=== PATIENT | female | born 1935 | race African-American/Black ===

== ENCOUNTER 2017-10-26 17:54 | Emergency (ER) | payer MEDICARE, MEDICAID ==
[~2017-10-26] VITALS: Ht 137.2 cm; Wt 50.0 kg
[~2017-10-26 17:54] MED LIST: ASA PO; CLOP75TA16 PO; ERGO2000 PO; FERROUS SULFATE; FURO80TA87; GLIM2TAB2 PO; INSU100V28 IJ; NEPHRO-VITE; NOVOLIN; OMEP20CA10 PO; PRAV40TA58 PO; REN800 PO; VENTOLIN
[2017-10-26 20:41] VITALS: BP 133/56
== END 2017-10-26 21:00 | disposition home or self-care (01) ==
LOC: ER 17:54
DX: T82.838A Hemorrhage due to vascular prosthetic devices, implants and grafts, initial encounter (principal); I12.0 Hypertensive chronic kidney disease with stage 5 chronic kidney disease or end stage renal disease; N18.6 End stage renal disease; E11.22 Type 2 diabetes mellitus with diabetic chronic kidney disease; Y92.89 Other specified places as the place of occurrence of the external cause; Z99.2 Dependence on renal dialysis; Z98.890 Other specified postprocedural states
CPT/HCPCS: 99283

== ENCOUNTER 2018-03-27 22:58 | Emergency (ER) | payer MEDICARE, MEDICAID ==
[~2018-03-27] VITALS: Ht 106.7 cm; Wt 68.0 kg
[2018-03-28 00:57] LABS: CHLORIDE 98 mEq/L (98-107)
[2018-03-28 00:59] LABS: INR 1.2
[2018-03-28 01:00] LABS: BASOPHILS % 0.5 % (0.0-2.0); EOSINOPHILS % 3.8 % (0.0-5.0); HEMATOCRIT. 30.9 % (36.0-48.0); HEMOGLOBIN. 9.9 g/dL (12.0-16.0); LYMPHOCYTES % 16.3 % (20.0-50.0); MEAN CORPUSCULAR HEMOGLOBIN 30.8 pg (28.0-32.0); MEAN CORPUSCULAR VOLUME 95.7 fL (81.0-99.0); MEAN PLATELET VOLUME 8.4 fl (7.4-10.4); MONOCYTES % 6.8 % (2.0-8.0); NEUTROPHILS % 72.6 % (40.0-76.0); PLATELET 159 x1000/uL (130-400); RED BLOOD CELL COUNT 3.23 mill/uL (4.2-5.4)
[2018-03-28 03:20] VITALS: BP 109/52
== END 2018-03-28 03:16 | disposition home or self-care (01) ==
LOC: ER 22:58
DX: T82.838A Hemorrhage due to vascular prosthetic devices, implants and grafts, initial encounter (principal); D63.1 Anemia in chronic kidney disease; E11.22 Type 2 diabetes mellitus with diabetic chronic kidney disease; I12.0 Hypertensive chronic kidney disease with stage 5 chronic kidney disease or end stage renal disease; N18.6 End stage renal disease; Y84.1 Kidney dialysis as the cause of abnormal reaction of the patient, or of later complication, without mention of misadventure at the time of the procedure; Z99.2 Dependence on renal dialysis; Y92.018 Other place in single-family (private) house as the place of occurrence of the external cause
CPT/HCPCS: 36415; 80053; 85025; 85610; 99284

== ENCOUNTER 2018-08-13 21:54 | Inpatient (IN) | payer MEDICARE, MEDICAID ==
[~2018-08-13] VITALS: Ht 162.6 cm; Wt 62.6 kg
[2018-08-13] MEDS ORDERED: METHYLPREDNISOLONE SOD SUCC 125 MG/2 ML VIAL IV STA (22:36)
[2018-08-13] MEDS ORDERED: ALBUTEROL (0.083%) 2.5MG/3ML NEB HHN STA (22:36)
[2018-08-13] MEDS: IPRATROPIUM BROMIDE (0.02%) 0.5MG/2.5ML NEB HHN STA ×2 (23:05→23:10)
[2018-08-13 23:53] LABS: BASOPHILS % 0.7 % (0.0-2.0); HEMATOCRIT. 37.4 % (36.0-48.0); HEMOGLOBIN. 11.9 g/dL (12.0-16.0); LYMPHOCYTES % 15.1 % (20.0-50.0); MEAN CORPUSCULAR HEMOGLOBIN 30.3 pg (28.0-32.0); MEAN CORPUSCULAR VOLUME 95.6 fL (81.0-99.0); MONOCYTES % 7.9 % (2.0-8.0); NEUTROPHILS % 72.3 % (40.0-76.0); PLATELET 138 x1000/uL (130-400); RED BLOOD CELL COUNT 3.91 mill/uL (4.2-5.4); RED CELL DISTRIBUTION WIDTH 17.2 % (11.6-14.6)
[2018-08-13 23:54] LABS: INR 1.2; PROTHROMBIN TIME 12.4 sec (9.1-11.1)
[2018-08-13 23:57] LABS: CHLORIDE 95 mEq/L (98-107)
[2018-08-14] MEDS ORDERED: DILTIAZEM HCL 5MG/ML 5ML VIAL IV ONE (04:00)
[2018-08-14] MEDS ORDERED: DIGOXIN 500MCG/2ML AMP IV SCH (11:16)
[2018-08-14] MEDS ORDERED: KCL 20MEQ/100ML PREMIX 100 ML IV NR (11:30)
[2018-08-14] MEDS ORDERED: AMIODARONE HCL 150 MG in DEXT 5% WATER 100 ML IV NR (12:25)
[2018-08-14] MEDS ORDERED: AMIODARONE HCL 900 MG in DEXT 5% WATER 482 ML IV SCH (12:26)
[2018-08-14] MEDS: AMIODARONE HCL 900 MG in DEXT 5% WATER 482 ML IV SCH (13:44)
[2018-08-14] MEDS ORDERED: CLONIDINE 0.1MG TABLET PO PRN (15:15)
[2018-08-14] MEDS ORDERED: ONDANSETRON HCL 4MG/2ML INJ IV PRN (15:15)
[2018-08-14] MEDS ORDERED: LORAZEPAM 2MG/ML CPJ IV PRN (15:15)
[2018-08-14] MEDS ORDERED: IPRATROPIUM/ALBUTEROL 0.5-3(2.5)MG/3ML NEB INH PRN (15:15)
[2018-08-14] MEDS ORDERED: DOCUSATE SODIUM 100MG CAPSULE PO PRN (15:15)
[2018-08-14 15:33] VITALS: BP 135/61
[2018-08-14 16:00] VITALS: BP 122/74
[2018-08-14 18:00] VITALS: BP 152/58
[2018-08-14] MEDS ORDERED: DEXTROSE 50% WATER 50ML SYRINGE IV PRN (18:15)
[2018-08-14] MEDS: INSULIN LISPRO 100 UNITS/ML SUBCUT SCH ×2 (19:12→22:58)
[2018-08-14 20:00] VITALS: BP 114/76
[2018-08-14] MEDS ORDERED: ENOXAPARIN 30MG/0.3ML SYR SUBCUT SCH (20:00)
[2018-08-14] MEDS: BLOOD SUGAR DIAGNOSTIC STRIP TEST SCH (21:00)
[2018-08-14 22:00] VITALS: BP 122/62
[2018-08-14] MEDS: SODIUM CHLORIDE 0.9% INJ 3ML FLUSH IVF SCH (22:49)
[2018-08-15] VITALS (12 sets, daily range): BP systolic 121–152; BP diastolic 55–95
[2018-08-15] MEDS: ACETAMINOPHEN 325MG TABLET PO PRN (05:07)
[2018-08-15] MEDS: BLOOD SUGAR DIAGNOSTIC STRIP TEST SCH ×4 (06:26→21:30)
[2018-08-15] MEDS: SODIUM CHLORIDE 0.9% INJ 3ML FLUSH IVF SCH ×3 (06:26→22:05)
[2018-08-15] MEDS: INSULIN LISPRO 100 UNITS/ML SUBCUT SCH ×4 (07:20→21:00)
[2018-08-15] MEDS: AMIODARONE HCL 900 MG in DEXT 5% WATER 482 ML IV SCH (08:03)
[2018-08-15] MEDS: FOLIC ACID/VITAMIN B COMP W-C TABLET PO SCH (08:03)
[2018-08-15] MEDS: SEVELAMER CARBONATE 800 MG TABLET PO SCH ×3 (08:03→17:47)
[2018-08-15 08:29] LABS: BASOPHILS % 0.8 % (0.0-2.0); EOSINOPHILS % 0.5 % (0.0-5.0); HEMATOCRIT. 40.5 % (36.0-48.0); HEMOGLOBIN. 12.5 g/dL (12.0-16.0); LYMPHOCYTES % 11.9 % (20.0-50.0); MEAN CORPUSCULAR HEMOGLOBIN 29.9 pg (28.0-32.0); MEAN CORPUSCULAR VOLUME 97.2 fL (81.0-99.0); MEAN PLATELET VOLUME 8.9 fl (7.4-10.4); MONOCYTES % 8.4 % (2.0-8.0); NEUTROPHILS % 78.4 % (40.0-76.0); PLATELET 161 x1000/uL (130-400); RED BLOOD CELL COUNT 4.17 mill/uL (4.2-5.4); RED CELL DISTRIBUTION WIDTH 17.1 % (11.6-14.6)
[2018-08-15] MEDS ORDERED: AMIODARONE HCL 900 MG in DEXT 5% WATER 482 ML IV SCH (10:43)
[2018-08-15] MEDS ORDERED: ASPIRIN 81MG EC TABLET PO NR (12:00)
[2018-08-15] MEDS ORDERED: AMIODARONE HCL 200 MG TABLET PO SCH (12:00)
[2018-08-15] MEDS: APIXABAN 2.5 MG TABLET PO SCH (17:47)
[2018-08-15] MEDS: ATORVASTATIN CALCIUM 40MG TABLET PO SCH (21:26)
[2018-08-15] MEDS: CARVEDILOL 6.25 MG TABLET PO SCH (21:28)
[2018-08-16] VITALS (15 sets, daily range): BP systolic 104–145; BP diastolic 30–108
[2018-08-16] MEDS: ACETAMINOPHEN 325MG TABLET PO PRN (03:30)
[2018-08-16] MEDS: BLOOD SUGAR DIAGNOSTIC STRIP TEST SCH ×4 (06:45→21:21)
[2018-08-16] MEDS: SODIUM CHLORIDE 0.9% INJ 3ML FLUSH IVF SCH ×2 (06:45→14:00)
[2018-08-16] MEDS: INSULIN LISPRO 100 UNITS/ML SUBCUT SCH ×4 (07:20→21:00)
[2018-08-16 07:22] LABS: BASOPHILS % 0.8 % (0.0-2.0); EOSINOPHILS % 2.4 % (0.0-5.0); HEMATOCRIT. 40.1 % (36.0-48.0); HEMOGLOBIN. 12.4 g/dL (12.0-16.0); LYMPHOCYTES % 15.2 % (20.0-50.0); MEAN CORPUSCULAR HEMOGLOBIN 30.1 pg (28.0-32.0); MEAN CORPUSCULAR VOLUME 97.1 fL (81.0-99.0); MEAN PLATELET VOLUME 8.8 fl (7.4-10.4); MONOCYTES % 6.2 % (2.0-8.0); NEUTROPHILS % 75.4 % (40.0-76.0); PLATELET 169 x1000/uL (130-400); RED BLOOD CELL COUNT 4.13 mill/uL (4.2-5.4); RED CELL DISTRIBUTION WIDTH 17.7 % (11.6-14.6)
[2018-08-16] MEDS: FOLIC ACID/VITAMIN B COMP W-C TABLET PO SCH (07:54)
[2018-08-16] MEDS: ASPIRIN 81MG EC TABLET PO SCH (07:55)
[2018-08-16] MEDS: AMIODARONE HCL 200 MG TABLET PO SCH (07:55)
[2018-08-16] MEDS: APIXABAN 2.5 MG TABLET PO SCH ×2 (07:55→17:40)
[2018-08-16] MEDS: SEVELAMER CARBONATE 800 MG TABLET PO SCH ×3 (07:55→17:40)
[2018-08-16] MEDS: CARVEDILOL 6.25 MG TABLET PO SCH ×2 (07:56→23:33)
[2018-08-16] MEDS: ATORVASTATIN CALCIUM 40MG TABLET PO SCH (23:31)
[2018-08-17] VITALS (12 sets, daily range): BP systolic 96–138; BP diastolic 40–73
[2018-08-17] MEDS: SODIUM CHLORIDE 0.9% INJ 3ML FLUSH IVF SCH ×3 (06:00→22:30)
[2018-08-17] MEDS: BLOOD SUGAR DIAGNOSTIC STRIP TEST SCH ×4 (06:45→21:00)
[2018-08-17 06:52] LABS: BASOPHILS % 0.8 % (0.0-2.0); EOSINOPHILS % 5.9 % (0.0-5.0); HEMATOCRIT. 40.1 % (36.0-48.0); HEMOGLOBIN. 12.4 g/dL (12.0-16.0); LYMPHOCYTES % 14.5 % (20.0-50.0); MEAN CORPUSCULAR HEMOGLOBIN 29.8 pg (28.0-32.0); MEAN PLATELET VOLUME 8.7 fl (7.4-10.4); MONOCYTES % 5.9 % (2.0-8.0); NEUTROPHILS % 72.9 % (40.0-76.0); PLATELET 158 x1000/uL (130-400); RED BLOOD CELL COUNT 4.18 mill/uL (4.2-5.4); RED CELL DISTRIBUTION WIDTH 17.1 % (11.6-14.6)
[2018-08-17] MEDS: INSULIN LISPRO 100 UNITS/ML SUBCUT SCH ×4 (07:20→21:00)
[2018-08-17] MEDS: FOLIC ACID/VITAMIN B COMP W-C TABLET PO SCH (08:23)
[2018-08-17] MEDS: APIXABAN 2.5 MG TABLET PO SCH ×2 (08:23→17:10)
[2018-08-17] MEDS: CARVEDILOL 6.25 MG TABLET PO SCH ×2 (08:23→21:00)
[2018-08-17] MEDS: SEVELAMER CARBONATE 800 MG TABLET PO SCH ×3 (08:23→17:10)
[2018-08-17] MEDS: AMIODARONE HCL 200 MG TABLET PO SCH (08:23)
[2018-08-17] MEDS: ASPIRIN 81MG EC TABLET PO SCH (08:24)
[2018-08-17 08:37] LABS: BG BASE EXCESS -1.1 mmol/L (-2.0-2.0); BG CARBOXYHEMOGLOBIN 1.9 % (0.5-1.5); BG DEOXYHEMOGLOBIN 3.6 % (0.0-5.0); BG FRACTION INSPIRED OXYGEN 21; BG HCO3 ACT 24.2 mmol/L (22.0-26.0); BG METHEMOGLOBIN 0.3 % (0.0-1.5); BG OXYGEN SATURATION 96.3 % (92.0-98.5); BG OXYHEMOGLOBIN 94.2 % (94.0-97.0); BG PCO2 43.1 mmHg (35.0-45.0); BG PH 7.368 (7.350-7.450); BG PO2 84.4 mmHg (75.0-100.0); BG SAMPLE SITE LEFT BRACHIAL; BG TOTAL HEMOGLOBIN 12.5 g/dL (12.0-18.0); BG VENT MODE ROOM AIR
[2018-08-17] MEDS: ATORVASTATIN CALCIUM 40MG TABLET PO SCH (22:33)
[2018-08-18] VITALS (12 sets, daily range): BP systolic 98–132; BP diastolic 58–86
[2018-08-18] MEDS: BLOOD SUGAR DIAGNOSTIC STRIP TEST SCH ×4 (06:14→20:43)
[2018-08-18] MEDS: SODIUM CHLORIDE 0.9% INJ 3ML FLUSH IVF SCH ×3 (06:14→21:00)
[2018-08-18 07:18] LABS: BASOPHILS % 0.6 % (0.0-2.0); EOSINOPHILS % 6.3 % (0.0-5.0); HEMATOCRIT. 41.8 % (36.0-48.0); LYMPHOCYTES % 18.2 % (20.0-50.0); MEAN CORPUSCULAR VOLUME 96.1 fL (81.0-99.0); MEAN PLATELET VOLUME 8.7 fl (7.4-10.4); MONOCYTES % 7.1 % (2.0-8.0); NEUTROPHILS % 67.8 % (40.0-76.0); PLATELET 163 x1000/uL (130-400); RED BLOOD CELL COUNT 4.35 mill/uL (4.2-5.4); RED CELL DISTRIBUTION WIDTH 17.2 % (11.6-14.6)
[2018-08-18] MEDS: INSULIN LISPRO 100 UNITS/ML SUBCUT SCH ×4 (07:20→20:43)
[2018-08-18] MEDS: SEVELAMER CARBONATE 800 MG TABLET PO SCH ×3 (08:52→17:49)
[2018-08-18] MEDS: ASPIRIN 81MG EC TABLET PO SCH (08:52)
[2018-08-18] MEDS: FOLIC ACID/VITAMIN B COMP W-C TABLET PO SCH (08:52)
[2018-08-18] MEDS: APIXABAN 2.5 MG TABLET PO SCH ×2 (08:53→17:49)
[2018-08-18] MEDS: AMIODARONE HCL 200 MG TABLET PO SCH (08:53)
[2018-08-18] MEDS: CARVEDILOL 6.25 MG TABLET PO SCH ×2 (08:53→20:42)
[2018-08-18] MEDS: ATORVASTATIN CALCIUM 40MG TABLET PO SCH (20:42)
[2018-08-19] VITALS (8 sets, daily range): BP systolic 107–126; BP diastolic 52–69
[2018-08-19] MEDS: SODIUM CHLORIDE 0.9% INJ 3ML FLUSH IVF SCH (05:51)
[2018-08-19] MEDS: BLOOD SUGAR DIAGNOSTIC STRIP TEST SCH ×2 (05:52→11:25)
[2018-08-19 07:02] LABS: BASOPHILS % 0.6 % (0.0-2.0); EOSINOPHILS % 5.3 % (0.0-5.0); HEMATOCRIT. 42.3 % (36.0-48.0); HEMOGLOBIN. 13.1 g/dL (12.0-16.0); LYMPHOCYTES % 18.8 % (20.0-50.0); MEAN CORPUSCULAR HEMOGLOBIN 29.6 pg (28.0-32.0); MEAN CORPUSCULAR VOLUME 95.9 fL (81.0-99.0); MEAN PLATELET VOLUME 8.7 fl (7.4-10.4); MONOCYTES % 6.7 % (2.0-8.0); NEUTROPHILS % 68.6 % (40.0-76.0); PLATELET 175 x1000/uL (130-400); RED BLOOD CELL COUNT 4.41 mill/uL (4.2-5.4); RED CELL DISTRIBUTION WIDTH 16.8 % (11.6-14.6)
[2018-08-19] MEDS: INSULIN LISPRO 100 UNITS/ML SUBCUT SCH ×2 (07:20→12:54)
[2018-08-19] MEDS: FOLIC ACID/VITAMIN B COMP W-C TABLET PO SCH (08:15)
[2018-08-19] MEDS: APIXABAN 2.5 MG TABLET PO SCH (08:15)
[2018-08-19] MEDS: ASPIRIN 81MG EC TABLET PO SCH (08:15)
[2018-08-19] MEDS: SEVELAMER CARBONATE 800 MG TABLET PO SCH ×2 (08:15→12:54)
[2018-08-19] MEDS: CARVEDILOL 6.25 MG TABLET PO SCH (08:15)
[2018-08-19] MEDS: AMIODARONE HCL 200 MG TABLET PO SCH (08:15)
[2018-08-19] MEDS ORDERED: PANT40TA4 PO (10:42)
[2018-08-19] MEDS ORDERED: LORA10TA7 PO (10:42)
[2018-08-19] MEDS ORDERED: ATOR20TA65 PO (10:42)
[2018-08-19] MEDS ORDERED: METO-385 PO (10:42)
[2018-08-19] MEDS ORDERED: FOLI0.8T42 PO (10:42)
[2018-08-19] MEDS ORDERED: APIX2.5T PO (10:42)
[2018-08-19] MEDS ORDERED: LOSA50TA20 PO (10:42)
[2018-08-19] MEDS ORDERED: ASPI-1158 PO (10:42)
== END 2018-08-19 13:48 | disposition home health service (06) | DRG 291 ==
LOC: ER 21:54 → 3WST 08-14 00:56 → EDBEDREQTM 08-14 01:02 → EDBEDREQ 08-14 01:02 → EDBEDREQDT 08-14 01:02 → EDBEDREQSVC 08-14 12:18 → EDBEDREQTM 08-14 12:18 → ENRESERV 08-14 13:57
PROVIDERS: ADMIT Internal Medicine Nephrology; ATTEND Internal Medicine Nephrology
PROC: 5A1D70Z Performance of Urinary Filtration, Intermittent, Less than 6 Hours Per Day (ICD-10-PCS; 2018-08-14)
PROC: 5A1D70Z Performance of Urinary Filtration, Intermittent, Less than 6 Hours Per Day (ICD-10-PCS; 2018-08-16)
PROC: 5A1D70Z Performance of Urinary Filtration, Intermittent, Less than 6 Hours Per Day (ICD-10-PCS; principal; 2018-08-17)
DX: I13.2 Hypertensive heart and chronic kidney disease with heart failure and with stage 5 chronic kidney disease, or end stage renal disease (principal); J96.00 Acute respiratory failure, unspecified whether with hypoxia or hypercapnia; I50.21 Acute systolic (congestive) heart failure; N18.6 End stage renal disease; J44.1 Chronic obstructive pulmonary disease with (acute) exacerbation; I48.1 Persistent atrial fibrillation; N25.81 Secondary hyperparathyroidism of renal origin; J45.901 Unspecified asthma with (acute) exacerbation; D64.9 Anemia, unspecified; I27.20 Pulmonary hypertension, unspecified; E11.22 Type 2 diabetes mellitus with diabetic chronic kidney disease; E11.319 Type 2 diabetes mellitus with unspecified diabetic retinopathy without macular edema; E11.51 Type 2 diabetes mellitus with diabetic peripheral angiopathy without gangrene; E78.5 Hyperlipidemia, unspecified; E87.6 Hypokalemia; I07.1 Rheumatic tricuspid insufficiency; I25.10 Atherosclerotic heart disease of native coronary artery without angina pectoris; I25.2 Old myocardial infarction; E11.40 Type 2 diabetes mellitus with diabetic neuropathy, unspecified; I25.5 Ischemic cardiomyopathy; I48.0 Paroxysmal atrial fibrillation; I45.10 Unspecified right bundle-branch block; I48.2 Chronic atrial fibrillation; Z79.01 Long term (current) use of anticoagulants; Z79.899 Other long term (current) drug therapy; Z89.511 Acquired absence of right leg below knee; Z89.612 Acquired absence of left leg above knee; Z95.5 Presence of coronary angioplasty implant and graft; Z99.2 Dependence on renal dialysis
CPT/HCPCS: 36415; 36600; 71045; 80048; 82375; 82805; 82962; 83605; 83735; 84443; 84484; 87804; 93005; 93306; 94644; 96365; 96366; 96375; 97110; 97162; 97166; 97530; 99285; J0282; J1160; J1650; J1815; J2930; J3480; J3490; J7050; J7060; J7611; J7620

== ENCOUNTER 2018-09-27 13:24 | Inpatient (IN) | payer MEDICARE, MEDICAID ==
[~2018-09-27] VITALS: Ht 132.1 cm; Wt 53.5 kg
[~2018-09-27 13:24] MED LIST changes: +APIX2.5T PO; -ASA PO; +ASPI-1158 PO; +ATOR20TA65 PO; -ERGO2000 PO; -FERROUS SULFATE; +FOLI0.8T42 PO; -FURO80TA87; +LORA10TA7 PO; -NOVOLIN; -OMEP20CA10 PO; +PANT40TA4 PO; -PRAV40TA58 PO
[2018-09-27 14:57] LABS: BASOPHILS % 1.1 % (0.0-2.0); EOSINOPHILS % 4.1 % (0.0-5.0); HEMOGLOBIN. 12.6 g/dL (12.0-16.0); LYMPHOCYTES % 19.2 % (20.0-50.0); MEAN CORPUSCULAR HEMOGLOBIN 29.8 pg (28.0-32.0); MEAN CORPUSCULAR VOLUME 94.8 fL (81.0-99.0); MEAN PLATELET VOLUME 8.9 fl (7.4-10.4); MONOCYTES % 7.7 % (2.0-8.0); NEUTROPHILS % 67.9 % (40.0-76.0); PLATELET 154 x1000/uL (130-400); RED BLOOD CELL COUNT 4.22 mill/uL (4.2-5.4)
[2018-09-27 15:03] LABS: CHLORIDE 98 mEq/L (98-107)
[2018-09-27 15:06] LABS: INR 1.2; PARTIAL THROMBOPLASTIN TIME 41.6 sec (23.4-31.0); PROTHROMBIN TIME 12.2 sec (9.1-11.1)
[2018-09-27] MEDS ORDERED: DIPHENHYDRAMINE 50MG/ML VIAL IV PRN (23:30)
[2018-09-27] MEDS ORDERED: CLONIDINE 0.1MG TABLET PO PRN (23:30)
[2018-09-27] MEDS ORDERED: ONDANSETRON HCL 4MG/2ML INJ IV PRN (23:30)
[2018-09-27] MEDS ORDERED: IPRATROPIUM/ALBUTEROL 0.5-3(2.5)MG/3ML NEB INH PRN (23:30)
[2018-09-27] MEDS ORDERED: DEXTROSE 50% WATER 50ML SYRINGE IV PRN (23:30)
[2018-09-28] VITALS: BP 114/54
[2018-09-28 04:00] VITALS: BP 109/55
[2018-09-28] MEDS ORDERED: VANCOMYCIN 1 G PREMIX 200 ML IV NR (04:00)
[2018-09-28] MEDS: ACETAMINOPHEN 325MG TABLET PO PRN ×2 (05:04→17:50)
[2018-09-28] MEDS: BLOOD SUGAR DIAGNOSTIC STRIP TEST SCH ×4 (06:18→21:00)
[2018-09-28 07:05] LABS: BASOPHILS % 0.8 % (0.0-2.0); EOSINOPHILS % 4.5 % (0.0-5.0); HEMATOCRIT. 37.8 % (36.0-48.0); HEMOGLOBIN. 11.6 g/dL (12.0-16.0); LYMPHOCYTES % 24.1 % (20.0-50.0); MEAN CORPUSCULAR HEMOGLOBIN 29.3 pg (28.0-32.0); MEAN CORPUSCULAR VOLUME 95.1 fL (81.0-99.0); MEAN PLATELET VOLUME 9.5 fl (7.4-10.4); MONOCYTES % 8.6 % (2.0-8.0); PLATELET 141 x1000/uL (130-400); RED BLOOD CELL COUNT 3.97 mill/uL (4.2-5.4); RED CELL DISTRIBUTION WIDTH 18.1 % (11.6-14.6)
[2018-09-28] MEDS: SODIUM CHLORIDE 0.9% INJ 3ML FLUSH IVF SCH ×2 (07:35→22:00)
[2018-09-28] MEDS: INSULIN LISPRO 100 UNITS/ML SUBCUT SCH ×4 (07:36→21:00)
[2018-09-28 08:00] VITALS: BP 107/50
[2018-09-28] MEDS: CARVEDILOL 3.125 MG TABLET PO SCH ×2 (09:00→21:00)
[2018-09-28] MEDS: AMIODARONE HCL 200 MG TABLET PO SCH (09:11)
[2018-09-28] MEDS ORDERED: INFLUENZA VIRUS VACCINE(AFLURIA) 0.5ML SYR IM ONE (10:00)
[2018-09-28] MEDS ORDERED: KCL 20MEQ/100ML PREMIX 100 ML IV SCH (14:00)
[2018-09-28 20:00] VITALS: BP 106/50
[2018-09-28 22:30] VITALS: BP 122/56
[2018-09-29] VITALS (7 sets, daily range): BP systolic 109–128; BP diastolic 50–67
[2018-09-29] MEDS: INSULIN LISPRO 100 UNITS/ML SUBCUT SCH ×4 (06:49→21:21)
[2018-09-29] MEDS: BLOOD SUGAR DIAGNOSTIC STRIP TEST SCH ×4 (06:49→20:22)
[2018-09-29] MEDS: SODIUM CHLORIDE 0.9% INJ 3ML FLUSH IVF SCH ×2 (06:49→16:17)
[2018-09-29] MEDS: CARVEDILOL 3.125 MG TABLET PO SCH ×2 (09:00→21:00)
[2018-09-29] MEDS: AMIODARONE HCL 200 MG TABLET PO SCH (09:29)
[2018-09-29] MEDS ORDERED: VANCOMYCIN 750 MG PREMIX 150 ML IV SCH (14:00)
== END 2018-09-29 21:36 | disposition home or self-care (01) | DRG 314 ==
LOC: ER 13:24 → 8WST 17:10 → ENRESERV 21:18
PROVIDERS: ADMIT Internal Medicine; ATTEND Internal Medicine
PROC: 5A1D70Z Performance of Urinary Filtration, Intermittent, Less than 6 Hours Per Day (ICD-10-PCS; principal; 2018-09-28)
DX: T82.7XXA Infection and inflammatory reaction due to other cardiac and vascular devices, implants and grafts, initial encounter (principal); N18.6 End stage renal disease; I13.2 Hypertensive heart and chronic kidney disease with heart failure and with stage 5 chronic kidney disease, or end stage renal disease; I50.22 Chronic systolic (congestive) heart failure; J84.9 Interstitial pulmonary disease, unspecified; N25.81 Secondary hyperparathyroidism of renal origin; Y84.1 Kidney dialysis as the cause of abnormal reaction of the patient, or of later complication, without mention of misadventure at the time of the procedure; E11.22 Type 2 diabetes mellitus with diabetic chronic kidney disease; E11.51 Type 2 diabetes mellitus with diabetic peripheral angiopathy without gangrene; E11.65 Type 2 diabetes mellitus with hyperglycemia; E78.00 Pure hypercholesterolemia, unspecified; E78.5 Hyperlipidemia, unspecified; E87.6 Hypokalemia; I25.5 Ischemic cardiomyopathy; I25.10 Atherosclerotic heart disease of native coronary artery without angina pectoris; I27.20 Pulmonary hypertension, unspecified; I48.2 Chronic atrial fibrillation; K21.9 Gastro-esophageal reflux disease without esophagitis; Z79.01 Long term (current) use of anticoagulants; Z89.511 Acquired absence of right leg below knee; I25.2 Old myocardial infarction; Y92.89 Other specified places as the place of occurrence of the external cause; Z89.512 Acquired absence of left leg below knee; Z89.612 Acquired absence of left leg above knee; Z95.5 Presence of coronary angioplasty implant and graft; Z99.2 Dependence on renal dialysis; Z79.82 Long term (current) use of aspirin; Z79.4 Long term (current) use of insulin; Z79.899 Other long term (current) drug therapy
CPT/HCPCS: 36415; 71045; 80048; 80202; 82962; 86850; 86900; 93005; 99285; J1815; J3370; J3480; J7050

== ENCOUNTER → 2018-12-06 | Outpatient (CLI) | payer MEDICARE, MEDICAID ==
[~2018-12-06] MED LIST changes: -ASPI-1158 PO
== END | disposition home or self-care (01) ==
LOC: US 09:36
PROVIDERS: ATTEND Internal Medicine Nephrology
DX: R16.0 Hepatomegaly, not elsewhere classified (principal); E11.22 Type 2 diabetes mellitus with diabetic chronic kidney disease; N18.9 Chronic kidney disease, unspecified
CPT/HCPCS: 74018; 76700

== ENCOUNTER 2018-12-16 21:36 | Emergency (ER) | payer MEDICARE, MEDICAID ==
[~2018-12-16] VITALS: Ht 149.9 cm; Wt 59.0 kg
[~2018-12-16 21:36] MED LIST changes: -CLOP75TA16 PO; +CLOP75TA4 PO
[2018-12-16 22:45] LABS: BASOPHILS % 0.5 % (0.0-2.0); EOSINOPHILS % 1.9 % (0.0-5.0); HEMATOCRIT. 34.1 % (36.0-48.0); HEMOGLOBIN. 10.7 g/dL (12.0-16.0); LYMPHOCYTES % 13.4 % (20.0-50.0); MEAN CORPUSCULAR HEMOGLOBIN 30.2 pg (28.0-32.0); MEAN CORPUSCULAR VOLUME 96.2 fL (81.0-99.0); MONOCYTES % 5.6 % (2.0-8.0); NEUTROPHILS % 78.6 % (40.0-76.0); PLATELET 151 x1000/uL (130-400); RED BLOOD CELL COUNT 3.55 mill/uL (4.2-5.4); RED CELL DISTRIBUTION WIDTH 17.3 % (11.6-14.6)
[2018-12-16 22:53] LABS: CHLORIDE 98 mEq/L (98-107)
[2018-12-16] MEDS ORDERED: BACITRACIN ZINC OINT UDPKT TOP ONE (22:54)
[2018-12-16 22:56] LABS: INR 1.3
[2018-12-17 00:09] VITALS: BP 121/86
== END 2018-12-17 02:25 | disposition home or self-care (01) ==
LOC: ER 21:36
DX: T82.838A Hemorrhage due to vascular prosthetic devices, implants and grafts, initial encounter (principal); S70.311A Abrasion, right thigh, initial encounter; M79.604 Pain in right leg; N28.9 Disorder of kidney and ureter, unspecified; E11.9 Type 2 diabetes mellitus without complications; I11.9 Hypertensive heart disease without heart failure; Z89.9 Acquired absence of limb, unspecified; Z99.2 Dependence on renal dialysis; Z86.73 Personal history of transient ischemic attack (TIA), and cerebral infarction without residual deficits; Z79.899 Other long term (current) drug therapy; Z79.4 Long term (current) use of insulin; X58.XXXA Exposure to other specified factors, initial encounter; Y93.89 Activity, other specified; Y92.89 Other specified places as the place of occurrence of the external cause; Y99.8 Other external cause status
CPT/HCPCS: 36415; 86850; 86900; 99283

== ENCOUNTER 2019-01-03 14:37 | Inpatient (IN) | payer MEDICARE, MEDICAID ==
[~2019-01-03] VITALS: Ht 157.5 cm; Wt 66.2 kg
[2019-01-03 15:57] LABS: EOSINOPHILS % 1.7 % (0.0-5.0); HEMATOCRIT. 36.2 % (36.0-48.0); HEMOGLOBIN. 11.5 g/dL (12.0-16.0); LYMPHOCYTES % 13.3 % (20.0-50.0); MEAN CORPUSCULAR HEMOGLOBIN 30.8 pg (28.0-32.0); MEAN CORPUSCULAR VOLUME 97.2 fL (81.0-99.0); MEAN PLATELET VOLUME 7.9 fl (7.4-10.4); MONOCYTES % 6.5 % (2.0-8.0); NEUTROPHILS % 77.5 % (40.0-76.0); PLATELET 158 x1000/uL (130-400); RED BLOOD CELL COUNT 3.73 mill/uL (4.2-5.4); RED CELL DISTRIBUTION WIDTH 20.3 % (11.6-14.6)
[2019-01-03 16:01] LABS: CHLORIDE 100 mEq/L (98-107)
[2019-01-03 16:03] LABS: INR 1.2; PARTIAL THROMBOPLASTIN TIME 39.3 sec (23.4-31.0); PROTHROMBIN TIME 12.7 sec (9.6-11.0)
[2019-01-03] MEDS ORDERED: KCL 10MEQ/50ML PREMIX 50 ML IV SCH (17:45)
[2019-01-03] MEDS ORDERED: DIPHENHYDRAMINE 50MG/ML VIAL IV PRN (20:30)
[2019-01-03] MEDS ORDERED: CLONIDINE 0.1MG TABLET PO PRN (20:30)
[2019-01-03] MEDS ORDERED: MAGNESIUM/ALUMINUM HYDROXIDE/SIMETHICONE 30ML UDC PO PRN (20:30)
[2019-01-03] MEDS ORDERED: DEXTROSE 50% WATER 50ML SYRINGE IV ONE (20:30)
[2019-01-03] MEDS ORDERED: IPRATROPIUM/ALBUTEROL 0.5-3(2.5)MG/3ML NEB INH PRN (20:30)
[2019-01-03] MEDS ORDERED: ONDANSETRON HCL 4MG/2ML INJ IV PRN (20:30)
[2019-01-03] MEDS ORDERED: GUAIFENESIN 200MG/10ML SUGAR FREE UDC PO PRN (20:30)
[2019-01-03] MEDS ORDERED: DEXT 5%/0.45% NACL 500ML 500 ML IV ONE (22:00)
[2019-01-03 23:00] VITALS: BP 106/46
[2019-01-04] VITALS: BP 104/57
[2019-01-04] MEDS: SODIUM CHLORIDE 0.9% INJ 3ML FLUSH IVF SCH ×2 (00:49→21:28)
[2019-01-04] MEDS: ACETAMINOPHEN 325MG TABLET PO PRN (01:05)
[2019-01-04 04:00] VITALS: BP 100/50
[2019-01-04 05:44] LABS: INR 1.2; PROTHROMBIN TIME 12.3 sec (9.6-11.0)
[2019-01-04 06:25] LABS: BASOPHILS % 0.6 % (0.0-2.0); EOSINOPHILS % 1.8 % (0.0-5.0); HEMATOCRIT. 35.8 % (36.0-48.0); HEMOGLOBIN. 11.3 g/dL (12.0-16.0); LYMPHOCYTES % 10.7 % (20.0-50.0); MEAN CORPUSCULAR HEMOGLOBIN 30.7 pg (28.0-32.0); MEAN CORPUSCULAR VOLUME 97.3 fL (81.0-99.0); MEAN PLATELET VOLUME 8.6 fl (7.4-10.4); MONOCYTES % 6.7 % (2.0-8.0); NEUTROPHILS % 80.2 % (40.0-76.0); PLATELET 177 x1000/uL (130-400); RED BLOOD CELL COUNT 3.67 mill/uL (4.2-5.4); RED CELL DISTRIBUTION WIDTH 19.9 % (11.6-14.6)
[2019-01-04 08:27] VITALS: BP 117/47
[2019-01-04] MEDS ORDERED: LIDOCAINE HCL 1% 20ML VIAL (Pyxis) INJ ONE ×2 (08:48→14:21)
[2019-01-04] MEDS ORDERED: SODIUM BICARBONATE 4% (2.4MEQ) 5ML VIAL IV ONE (08:48)
[2019-01-04] MEDS ORDERED: IOHEXOL-300 50 ML BOTTLE IV ONE (10:11)
[2019-01-04 12:31] VITALS: BP 106/53
[2019-01-04] MEDS ORDERED: DEXT 5%/0.45% NACL 500ML 500 ML IV ONE (13:30)
[2019-01-04] MEDS ORDERED: BACITRACIN 15GM TUBE TOP ONE (14:20)
[2019-01-04] MEDS ORDERED: THROMBIN (BOVINE) 5000 UNITS/VIAL TOP ONE ×2 (14:21→14:23)
[2019-01-04] MEDS ORDERED: NORMAL SALINE 0.9% 10 ML SYR ONE (14:22)
[2019-01-04] MEDS ORDERED: BACITRACIN 50,000 UNITS/VIAL ONE (14:22)
[2019-01-04] MEDS ORDERED: BUPIVACAINE HCL/PF 0.5% (5MG/ML) 10ML ONE (14:22)
[2019-01-04] MEDS ORDERED: HEPARIN SODIUM 1,000 UNIT/1ML VIAL IV ONE (14:27)
[2019-01-04] MEDS ORDERED: SODIUM CHLORIDE 0.9% 1,000 ML IV ONE (16:57)
[2019-01-04] MEDS ORDERED: ONDANSETRON HCL 4MG/2ML INJ IV PRN (17:00)
[2019-01-04 20:00] VITALS: BP 134/70
[2019-01-05] VITALS (7 sets, daily range): BP systolic 107–133; BP diastolic 43–70
[2019-01-05] MEDS: SODIUM CHLORIDE 0.9% INJ 3ML FLUSH IVF SCH ×5 (06:28→22:23)
[2019-01-05] MEDS ORDERED: GLIMEPIRIDE 2MG TABLET PO SCH (11:30)
[2019-01-05] MEDS: APIXABAN 2.5 MG TABLET PO SCH ×2 (12:38→18:26)
[2019-01-05] MEDS: ACETAMINOPHEN 325MG TABLET PO PRN (20:39)
[2019-01-05] MEDS: ATORVASTATIN CALCIUM 20MG TABLET PO SCH ×2 (20:42→21:35)
[2019-01-06] VITALS: BP 122/61
[2019-01-06 04:00] VITALS: BP 120/65
[2019-01-06] MEDS: SODIUM CHLORIDE 0.9% INJ 3ML FLUSH IVF SCH ×3 (05:30→21:34)
[2019-01-06] MEDS: ACETAMINOPHEN 325MG TABLET PO PRN ×2 (07:06→21:34)
[2019-01-06 08:00] VITALS: BP 119/64
[2019-01-06] MEDS: APIXABAN 2.5 MG TABLET PO SCH ×2 (09:00→16:46)
[2019-01-06] MEDS: FOLIC ACID/VITAMIN B COMP W-C TABLET PO SCH (10:28)
[2019-01-06 12:00] VITALS: BP 96/42
[2019-01-06 20:00] VITALS: BP 139/79
[2019-01-06] MEDS ORDERED: AMI2 PO (20:00)
[2019-01-06] MEDS ORDERED: COR6 PO (20:00)
[2019-01-06] MEDS ORDERED: BLOO-340 IN (20:00)
[2019-01-06] MEDS ORDERED: ATOR20TA PO (20:00)
[2019-01-06] MEDS ORDERED: LORA10TA7 PO (20:00)
[2019-01-06] MEDS ORDERED: ALBU18HF2 IH (20:00)
[2019-01-06] MEDS ORDERED: FOLI0.8T23 PO (20:00)
[2019-01-06] MEDS ORDERED: LOSA50TA41 PO (20:00)
[2019-01-06] MEDS ORDERED: TRAM50TA3 PO (20:00)
[2019-01-06] MEDS ORDERED: PROT40 PO (20:00)
[2019-01-06] MEDS: ATORVASTATIN CALCIUM 20MG TABLET PO SCH (21:32)
[2019-01-07] VITALS (20 sets, daily range): BP systolic 104–185; BP diastolic 51–84
[2019-01-07] MEDS: SODIUM CHLORIDE 0.9% INJ 3ML FLUSH IVF SCH ×2 (05:16→14:58)
[2019-01-07] MEDS ORDERED: CEFAZOLIN 1000MG PREMIX 50 ML IV SCH (06:45)
[2019-01-07] MEDS ORDERED: CEFAZOLIN 1000MG PREMIX 50 ML IV ONE (06:56)
[2019-01-07] MEDS ORDERED: SODIUM BICARBONATE 4% (2.4MEQ) 5ML VIAL IV ONE (06:56)
[2019-01-07] MEDS ORDERED: LIDOCAINE HCL 1% 20ML VIAL (Pyxis) INJ ONE (06:56)
[2019-01-07] MEDS ORDERED: HEPARIN 1000 UNITS/ML 10ML ONE (06:57)
[2019-01-07] MEDS ORDERED: FENTANYL CITRATE/PF 50MCG/ML 2ML VIAL ONE (08:03)
[2019-01-07] MEDS ORDERED: FENTANYL CITRATE/PF 50MCG/ML 2ML VIAL IV ONE (09:00)
[2019-01-07] MEDS: APIXABAN 2.5 MG TABLET PO SCH (09:00)
[2019-01-07] MEDS: FOLIC ACID/VITAMIN B COMP W-C TABLET PO SCH (10:13)
== END 2019-01-07 16:35 | disposition home or self-care (01) | DRG 252 ==
LOC: ER 14:37 → EDBEDREQ 16:35 → ENRESERV 20:11 → 8WST 22:23
PROVIDERS: ADMIT Internal Medicine; ATTEND Internal Medicine
PROC: 06WY07Z Revision of Autologous Tissue Substitute in Lower Vein, Open Approach (ICD-10-PCS; principal; 2019-01-04)
PROC: 02HV33Z Insertion of Infusion Device into Superior Vena Cava, Percutaneous Approach (ICD-10-PCS; 2019-01-04)
PROC: B548ZZA Ultrasonography of Superior Vena Cava, Guidance (ICD-10-PCS; 2019-01-04)
PROC: B5181ZA Fluoroscopy of Superior Vena Cava using Low Osmolar Contrast, Guidance (ICD-10-PCS; 2019-01-04)
PROC: 5A1D70Z Performance of Urinary Filtration, Intermittent, Less than 6 Hours Per Day (ICD-10-PCS; 2019-01-04)
PROC: 04WY07Z Revision of Autologous Tissue Substitute in Lower Artery, Open Approach (ICD-10-PCS; 2019-01-04)
PROC: 5A1D70Z Performance of Urinary Filtration, Intermittent, Less than 6 Hours Per Day (ICD-10-PCS; 2019-01-06)
PROC: 0JH63XZ Insertion of Tunneled Vascular Access Device into Chest Subcutaneous Tissue and Fascia, Percutaneous Approach (ICD-10-PCS; 2019-01-07)
PROC: 02H633Z Insertion of Infusion Device into Right Atrium, Percutaneous Approach (ICD-10-PCS; 2019-01-07)
PROC: B244ZZZ Ultrasonography of Right Heart (ICD-10-PCS; 2019-01-07)
PROC: B2141ZZ Fluoroscopy of Right Heart using Low Osmolar Contrast (ICD-10-PCS; 2019-01-07)
PROC: 02PYX3Z Removal of Infusion Device from Great Vessel, External Approach (ICD-10-PCS; 2019-01-07)
DX: T82.838A Hemorrhage due to vascular prosthetic devices, implants and grafts, initial encounter (principal); N18.6 End stage renal disease; N25.81 Secondary hyperparathyroidism of renal origin; J84.9 Interstitial pulmonary disease, unspecified; I13.2 Hypertensive heart and chronic kidney disease with heart failure and with stage 5 chronic kidney disease, or end stage renal disease; I50.22 Chronic systolic (congestive) heart failure; E11.22 Type 2 diabetes mellitus with diabetic chronic kidney disease; Y84.1 Kidney dialysis as the cause of abnormal reaction of the patient, or of later complication, without mention of misadventure at the time of the procedure; E11.51 Type 2 diabetes mellitus with diabetic peripheral angiopathy without gangrene; E87.6 Hypokalemia; I25.5 Ischemic cardiomyopathy; I48.2 Chronic atrial fibrillation; E78.5 Hyperlipidemia, unspecified; D64.9 Anemia, unspecified; I27.20 Pulmonary hypertension, unspecified; E78.00 Pure hypercholesterolemia, unspecified; K21.9 Gastro-esophageal reflux disease without esophagitis; Z86.73 Personal history of transient ischemic attack (TIA), and cerebral infarction without residual deficits; Z89.612 Acquired absence of left leg above knee; Z95.5 Presence of coronary angioplasty implant and graft; Z99.2 Dependence on renal dialysis; Z89.511 Acquired absence of right leg below knee; Z79.01 Long term (current) use of anticoagulants; I25.2 Old myocardial infarction; Z79.4 Long term (current) use of insulin; Z79.899 Other long term (current) drug therapy
CPT/HCPCS: 36415; 36556; 36558; 36589; 71045; 75827; 76937; 77001; 80048; 82962; 84484; 93005; 99285; C1750; C1752; C1887; J0690; J1642; J1644; J3010; J3480; J3490; J7050; Q9967

== ENCOUNTER 2019-04-16 02:22 | Inpatient (IN) | payer MEDICARE, MEDICAID ==
[~2019-04-16] VITALS: Ht 162.6 cm; Wt 62.1 kg
[~2019-04-16 02:22] MED LIST changes: +ALBU18HF2 IH; +AMI2 PO; +ATOR20TA PO; -ATOR20TA65 PO; +BLOO-340 IN; -CLOP75TA4 PO; +COR6 PO; +FOLI0.8T23 PO; -FOLI0.8T42 PO; -GLIM2TAB2 PO; -INSU100V28 IJ; +LOSA50TA41 PO; -NEPHRO-VITE; -PANT40TA4 PO; +PROT40 PO; -REN800 PO; +TRAM50TA3 PO; -VENTOLIN
[2019-04-16 03:49] LABS: BASOPHILS % 0.6 % (0.0-2.0); EOSINOPHILS % 2.1 % (0.0-5.0); HEMATOCRIT. 32.9 % (36.0-48.0); HEMOGLOBIN. 10.7 g/dL (12.0-16.0); LYMPHOCYTES % 11.6 % (20.0-50.0); MEAN CORPUSCULAR HEMOGLOBIN 30.3 pg (28.0-32.0); MEAN CORPUSCULAR VOLUME 93.4 fL (81.0-99.0); MEAN PLATELET VOLUME 8.5 fl (7.4-10.4); NEUTROPHILS % 77.7 % (40.0-76.0); PLATELET 112 x1000/uL (130-400); RED BLOOD CELL COUNT 3.53 mill/uL (4.2-5.4); RED CELL DISTRIBUTION WIDTH 15.7 % (11.6-14.6)
[2019-04-16 03:52] LABS: CHLORIDE 94 mEq/L (98-107)
[2019-04-16] MEDS ORDERED: DEXTROSE 50% WATER 50ML SYRINGE IV NR (04:45)
[2019-04-16 09:43] VITALS: BP 128/62
[2019-04-16] MEDS ORDERED: SEVE800T8 PO (10:24)
[2019-04-16] MEDS ORDERED: DEXTROSE 50% WATER 50ML SYRINGE IV PRN (11:30)
[2019-04-16 12:00] VITALS: BP 128/62
[2019-04-16] MEDS: INSULIN LISPRO 100 UNITS/ML SUBCUT SCH ×3 (13:10→21:00)
[2019-04-16] MEDS: BLOOD SUGAR DIAGNOSTIC STRIP TEST SCH ×3 (13:36→21:00)
[2019-04-16 16:00] VITALS: BP 114/58
[2019-04-16] MEDS: APIXABAN 2.5 MG TABLET PO SCH (17:32)
[2019-04-16 20:00] VITALS: BP 130/71
[2019-04-16] MEDS: IPRATROPIUM/ALBUTEROL 0.5-3(2.5)MG/3ML NEB HHN SCH (20:57)
[2019-04-16] MEDS: CARVEDILOL 6.25 MG TABLET PO SCH (22:05)
[2019-04-16] MEDS: GUAIFENESIN 200MG/10ML SUGAR FREE UDC PO SCH (22:05)
[2019-04-16] MEDS: ATORVASTATIN CALCIUM 20MG TABLET PO SCH (22:06)
[2019-04-17] VITALS: BP 129/76
[2019-04-17] MEDS: IPRATROPIUM/ALBUTEROL 0.5-3(2.5)MG/3ML NEB HHN SCH ×2 (01:31→20:15)
[2019-04-17 04:00] VITALS: BP 136/59
[2019-04-17] MEDS: BLOOD SUGAR DIAGNOSTIC STRIP TEST SCH ×4 (06:27→20:56)
[2019-04-17 06:54] LABS: BASOPHILS % 0.2 % (0.0-2.0); HEMATOCRIT. 32.7 % (36.0-48.0); HEMOGLOBIN. 10.7 g/dL (12.0-16.0); LYMPHOCYTES % 11.2 % (20.0-50.0); MEAN CORPUSCULAR HEMOGLOBIN 30.8 pg (28.0-32.0); MEAN CORPUSCULAR VOLUME 94.3 fL (81.0-99.0); MEAN PLATELET VOLUME 8.6 fl (7.4-10.4); MONOCYTES % 8.3 % (2.0-8.0); NEUTROPHILS % 78.3 % (40.0-76.0); PLATELET 100 x1000/uL (130-400); RED BLOOD CELL COUNT 3.47 mill/uL (4.2-5.4); RED CELL DISTRIBUTION WIDTH 16.3 % (11.6-14.6)
[2019-04-17 08:00] VITALS: BP 121/65
[2019-04-17] MEDS: INSULIN LISPRO 100 UNITS/ML SUBCUT SCH ×4 (08:10→21:13)
[2019-04-17 08:47] LABS: PHOSPHORUS 6.2 mg/dL (2.5-4.9)
[2019-04-17] MEDS: GUAIFENESIN 200MG/10ML SUGAR FREE UDC PO SCH ×2 (08:54→21:12)
[2019-04-17] MEDS: PANTOPRAZOLE 40MG DR TABLET PO SCH (08:55)
[2019-04-17] MEDS: CARVEDILOL 6.25 MG TABLET PO SCH ×2 (08:55→21:11)
[2019-04-17] MEDS: APIXABAN 2.5 MG TABLET PO SCH ×2 (08:55→18:20)
[2019-04-17 12:00] VITALS: BP 102/64
[2019-04-17] MEDS ORDERED: NEPVIT MT (14:32)
[2019-04-17] MEDS ORDERED: GLIM1TAB2 MT (14:32)
[2019-04-17 16:00] VITALS: BP 123/52
[2019-04-17 20:00] VITALS: BP 127/74
[2019-04-17] MEDS: ATORVASTATIN CALCIUM 20MG TABLET PO SCH (21:12)
[2019-04-18] VITALS: BP 111/51
[2019-04-18] MEDS: IPRATROPIUM/ALBUTEROL 0.5-3(2.5)MG/3ML NEB HHN SCH ×4 (02:01→21:11)
[2019-04-18 04:00] VITALS: BP 107/58
[2019-04-18] MEDS ORDERED: ACETAMINOPHEN 325MG TABLET PO PRN (05:15)
[2019-04-18] MEDS: BLOOD SUGAR DIAGNOSTIC STRIP TEST SCH ×4 (07:16→21:23)
[2019-04-18 07:48] LABS: BASOPHILS % 0.2 % (0.0-2.0); EOSINOPHILS % 1.1 % (0.0-5.0); HEMATOCRIT. 35.6 % (36.0-48.0); HEMOGLOBIN. 11.1 g/dL (12.0-16.0); LYMPHOCYTES % 8.6 % (20.0-50.0); MEAN CORPUSCULAR VOLUME 96.4 fL (81.0-99.0); MEAN PLATELET VOLUME 8.8 fl (7.4-10.4); MONOCYTES % 8.7 % (2.0-8.0); NEUTROPHILS % 81.4 % (40.0-76.0); PLATELET 107 x1000/uL (130-400); RED BLOOD CELL COUNT 3.69 mill/uL (4.2-5.4); RED CELL DISTRIBUTION WIDTH 16.2 % (11.6-14.6)
[2019-04-18 08:00] VITALS: BP 134/57
[2019-04-18] MEDS: INSULIN LISPRO 100 UNITS/ML SUBCUT SCH ×4 (09:39→21:00)
[2019-04-18] MEDS: APIXABAN 2.5 MG TABLET PO SCH ×2 (09:39→18:05)
[2019-04-18] MEDS: CARVEDILOL 6.25 MG TABLET PO SCH ×2 (09:39→21:00)
[2019-04-18] MEDS: PANTOPRAZOLE 40MG DR TABLET PO SCH (09:39)
[2019-04-18 12:00] VITALS: BP 141/59
[2019-04-18 16:00] VITALS: BP 139/70
[2019-04-18 20:39] VITALS: BP 89/35
[2019-04-18] MEDS: GUAIFENESIN 200MG/10ML SUGAR FREE UDC PO SCH (21:21)
[2019-04-18] MEDS: ATORVASTATIN CALCIUM 20MG TABLET PO SCH (21:23)
[2019-04-19] VITALS (7 sets, daily range): BP systolic 96–130; BP diastolic 56–72
[2019-04-19] MEDS: IPRATROPIUM/ALBUTEROL 0.5-3(2.5)MG/3ML NEB HHN SCH ×4 (01:16→21:21)
[2019-04-19] MEDS: BLOOD SUGAR DIAGNOSTIC STRIP TEST SCH ×4 (07:40→20:58)
[2019-04-19] MEDS: PANTOPRAZOLE 40MG DR TABLET PO SCH (07:40)
[2019-04-19 07:41] LABS: BASOPHILS % 0.5 % (0.0-2.0); HEMATOCRIT. 31.8 % (36.0-48.0); HEMOGLOBIN. 10.1 g/dL (12.0-16.0); LYMPHOCYTES % 8.3 % (20.0-50.0); MEAN CORPUSCULAR HEMOGLOBIN 30.4 pg (28.0-32.0); MEAN CORPUSCULAR VOLUME 95.9 fL (81.0-99.0); MEAN PLATELET VOLUME 8.5 fl (7.4-10.4); MONOCYTES % 7.8 % (2.0-8.0); NEUTROPHILS % 82.4 % (40.0-76.0); PLATELET 107 x1000/uL (130-400); RED BLOOD CELL COUNT 3.32 mill/uL (4.2-5.4); RED CELL DISTRIBUTION WIDTH 16.5 % (11.6-14.6)
[2019-04-19] MEDS: INSULIN LISPRO 100 UNITS/ML SUBCUT SCH ×4 (08:10→20:57)
[2019-04-19] MEDS: SEVELAMER CARBONATE 800 MG TABLET PO SCH ×3 (08:10→18:25)
[2019-04-19 08:31] LABS: PHOSPHORUS 5.7 mg/dL (2.5-4.9)
[2019-04-19] MEDS: APIXABAN 2.5 MG TABLET PO SCH ×2 (09:00→17:31)
[2019-04-19] MEDS: CARVEDILOL 6.25 MG TABLET PO SCH ×2 (09:00→20:58)
[2019-04-19] MEDS ORDERED: HEPARIN SODIUM 1,000 UNIT/1ML VIAL IV NR (11:00)
[2019-04-19] MEDS: GUAIFENESIN 200MG/10ML SUGAR FREE UDC PO SCH ×3 (17:39→20:58)
[2019-04-19] MEDS: ATORVASTATIN CALCIUM 20MG TABLET PO SCH (20:58)
[2019-04-20] MEDS ORDERED: FOLIC ACID/VITAMIN B COMP W-C TABLET PO SCH (09:00)
== END 2019-04-19 22:29 | disposition home or self-care (01) | DRG 291 ==
LOC: ER 02:22 → 7WST 04:45 → EDBEDREQ 04:48 → EDBEDREQTM 04:48 → ENRESERV 07:03 → 7WST 09:49
PROVIDERS: ADMIT Internal Medicine; ATTEND Internal Medicine
PROC: 5A1D70Z Performance of Urinary Filtration, Intermittent, Less than 6 Hours Per Day (ICD-10-PCS; principal; 2019-04-16)
PROC: 5A1D70Z Performance of Urinary Filtration, Intermittent, Less than 6 Hours Per Day (ICD-10-PCS; 2019-04-18)
DX: I13.2 Hypertensive heart and chronic kidney disease with heart failure and with stage 5 chronic kidney disease, or end stage renal disease (principal); J96.00 Acute respiratory failure, unspecified whether with hypoxia or hypercapnia; N18.6 End stage renal disease; I50.23 Acute on chronic systolic (congestive) heart failure; N25.81 Secondary hyperparathyroidism of renal origin; I48.20 Chronic atrial fibrillation, unspecified; J44.0 Chronic obstructive pulmonary disease with (acute) lower respiratory infection; D64.9 Anemia, unspecified; E11.21 Type 2 diabetes mellitus with diabetic nephropathy; E11.22 Type 2 diabetes mellitus with diabetic chronic kidney disease; E11.51 Type 2 diabetes mellitus with diabetic peripheral angiopathy without gangrene; I25.10 Atherosclerotic heart disease of native coronary artery without angina pectoris; I25.5 Ischemic cardiomyopathy; J20.9 Acute bronchitis, unspecified; K21.9 Gastro-esophageal reflux disease without esophagitis; D69.6 Thrombocytopenia, unspecified; E11.649 Type 2 diabetes mellitus with hypoglycemia without coma; E78.00 Pure hypercholesterolemia, unspecified; E83.52 Hypercalcemia; I27.20 Pulmonary hypertension, unspecified; E87.70 Fluid overload, unspecified; I25.2 Old myocardial infarction; Z79.01 Long term (current) use of anticoagulants; Z86.73 Personal history of transient ischemic attack (TIA), and cerebral infarction without residual deficits; Z89.511 Acquired absence of right leg below knee; Z89.612 Acquired absence of left leg above knee; Z95.5 Presence of coronary angioplasty implant and graft; Z99.2 Dependence on renal dialysis; Z95.820 Peripheral vascular angioplasty status with implants and grafts; Z79.899 Other long term (current) drug therapy
CPT/HCPCS: 36415; 71045; 80048; 82962; 83735; 84100; 84484; 93005; 93306; 94640; 96374; 99285; J1644; J1815; J7620

== ENCOUNTER 2019-05-07 12:16 | Inpatient (IN) | payer MEDICARE, MEDICAID ==
[~2019-05-07] VITALS: Ht 162.6 cm; Wt 60.8 kg
[~2019-05-07 12:16] MED LIST changes: -BLOO-340 IN; -COR6 PO; -FOLI0.8T23 PO; +GLIM1TAB2 MT; -LORA10TA7 PO; -LOSA50TA41 PO; +NEPVIT MT; -TRAM50TA3 PO
[2019-05-07] MEDS ORDERED: DESMOPRESSIN ACETATE 4MCG/ML AMP IV ONE (13:45)
[2019-05-07 13:52] LABS: BASOPHILS % 1.1 % (0.0-2.0); CHLORIDE 97 mEq/L (98-107); EOSINOPHILS % 1.2 % (0.0-5.0); HEMOGLOBIN. 10.7 g/dL (12.0-16.0); LYMPHOCYTES % 10.9 % (20.0-50.0); MEAN CORPUSCULAR HEMOGLOBIN 30.5 pg (28.0-32.0); MEAN CORPUSCULAR VOLUME 96.5 fL (81.0-99.0); MEAN PLATELET VOLUME 8.3 fl (7.4-10.4); MONOCYTES % 6.2 % (2.0-8.0); NEUTROPHILS % 80.6 % (40.0-76.0); PLATELET 176 x1000/uL (130-400); RED BLOOD CELL COUNT 3.52 mill/uL (4.2-5.4); RED CELL DISTRIBUTION WIDTH 18.4 % (11.6-14.6)
[2019-05-07 13:54] LABS: INR 1.1; PARTIAL THROMBOPLASTIN TIME 35.2 sec (23.4-31.0); PROTHROMBIN TIME 11.4 sec (9.6-11.0)
[2019-05-07] MEDS ORDERED: SODIUM CHLORIDE 0.9% IV SCH (14:15)
[2019-05-07] MEDS ORDERED: DESMOPRESSIN ACETATE IV SCH (14:15)
[2019-05-07] MEDS ORDERED: OXYCODONE HCL/ACETAMINOPHEN 5/325MG TABLET PO ONE (15:15)
[2019-05-07 16:30] VITALS: BP 127/66
[2019-05-07 16:49] VITALS: BP 127/66
[2019-05-07] MEDS ORDERED: FOLI0.8T23 MT (17:38)
[2019-05-07] MEDS ORDERED: LORA10TA7 PO (17:38)
[2019-05-07] MEDS ORDERED: ONDANSETRON HCL 4MG/2ML INJ IV PRN (18:45)
[2019-05-07] MEDS ORDERED: ACETAMINOPHEN 325MG TABLET PO PRN (18:45)
[2019-05-07] MEDS ORDERED: DIPHENHYDRAMINE 50MG/ML VIAL IV PRN (18:45)
[2019-05-07] MEDS ORDERED: MAGNESIUM/ALUMINUM HYDROXIDE/SIMETHICONE 30ML UDC PO PRN (18:45)
[2019-05-07] MEDS ORDERED: IPRATROPIUM/ALBUTEROL 0.5-3(2.5)MG/3ML NEB NEB PRN (18:45)
[2019-05-07] MEDS ORDERED: CLONIDINE 0.1MG TABLET PO PRN (18:45)
[2019-05-07] MEDS ORDERED: HYDROCODONE/ACETAMINOPHEN 10/325MG TABLET PO PRN (19:00)
[2019-05-07] MEDS: MORPHINE SULFATE 2 MG/ML CPJ (NOT FOR IM USE) IV PRN (19:09)
[2019-05-07 20:00] VITALS: BP 140/71
[2019-05-07] MEDS: CARVEDILOL 6.25 MG TABLET PO SCH (20:51)
[2019-05-07] MEDS: ATORVASTATIN CALCIUM 20MG TABLET PO SCH (20:51)
[2019-05-07] MEDS: PANTOPRAZOLE 40MG DR TABLET PO SCH (20:51)
[2019-05-07] MEDS: INSULIN LISPRO 100 UNITS/ML SUBCUT SCH (21:00)
[2019-05-07] MEDS: DEXTROSE 50% WATER 50ML SYRINGE IV PRN (21:00)
[2019-05-07] MEDS: BLOOD SUGAR DIAGNOSTIC STRIP TEST SCH (21:00)
[2019-05-07] MEDS: SODIUM CHLORIDE 0.9% INJ 3ML FLUSH IVF SCH (21:05)
[2019-05-08] VITALS: BP 103/49
[2019-05-08 04:00] VITALS: BP 111/53
[2019-05-08] MEDS: SODIUM CHLORIDE 0.9% INJ 3ML FLUSH IVF SCH ×3 (05:37→20:41)
[2019-05-08] MEDS: DEXTROSE 50% WATER 50ML SYRINGE IV PRN ×2 (05:43→12:53)
[2019-05-08 06:17] LABS: BASOPHILS % 0.6 % (0.0-2.0); EOSINOPHILS % 2.9 % (0.0-5.0); HEMATOCRIT. 31.4 % (36.0-48.0); LYMPHOCYTES % 19.3 % (20.0-50.0); MEAN CORPUSCULAR HEMOGLOBIN 30.3 pg (28.0-32.0); MEAN CORPUSCULAR VOLUME 95.3 fL (81.0-99.0); MEAN PLATELET VOLUME 8.5 fl (7.4-10.4); MONOCYTES % 7.5 % (2.0-8.0); NEUTROPHILS % 69.7 % (40.0-76.0); PLATELET 171 x1000/uL (130-400)
[2019-05-08] MEDS: BLOOD SUGAR DIAGNOSTIC STRIP TEST SCH ×4 (07:34→20:41)
[2019-05-08 08:00] VITALS: BP 107/56
[2019-05-08] MEDS: INSULIN LISPRO 100 UNITS/ML SUBCUT SCH ×4 (08:10→20:47)
[2019-05-08] MEDS: PANTOPRAZOLE 40MG DR TABLET PO SCH ×2 (09:08→20:41)
[2019-05-08] MEDS: CARVEDILOL 6.25 MG TABLET PO SCH ×2 (09:08→20:41)
[2019-05-08] MEDS: MORPHINE SULFATE 2 MG/ML CPJ (NOT FOR IM USE) IV PRN ×2 (09:09→15:03)
[2019-05-08 12:00] VITALS: BP 123/67
[2019-05-08] MEDS: FOLIC ACID/VITAMIN B COMP W-C TABLET PO SCH (12:53)
[2019-05-08] MEDS: SEVELAMER CARBONATE 800 MG TABLET PO SCH ×2 (12:53→17:52)
[2019-05-08] MEDS ORDERED: HEPARIN SODIUM 1,000 UNIT/1ML VIAL IV NR (15:00)
[2019-05-08 16:00] VITALS: BP 98/56
[2019-05-08 20:00] VITALS: BP 128/65
[2019-05-08] MEDS: ATORVASTATIN CALCIUM 20MG TABLET PO SCH (20:41)
[2019-05-09 00:05] VITALS: BP 112/62
[2019-05-09 04:00] VITALS: BP 103/46
[2019-05-09] MEDS: SODIUM CHLORIDE 0.9% INJ 3ML FLUSH IVF SCH ×3 (05:50→21:09)
[2019-05-09] MEDS: BLOOD SUGAR DIAGNOSTIC STRIP TEST SCH ×4 (05:50→21:01)
[2019-05-09] MEDS: DEXTROSE 50% WATER 50ML SYRINGE IV PRN ×2 (05:51→10:21)
[2019-05-09 07:32] LABS: BASOPHILS % 0.5 % (0.0-2.0); EOSINOPHILS % 2.8 % (0.0-5.0); HEMATOCRIT. 32.6 % (36.0-48.0); HEMOGLOBIN. 10.3 g/dL (12.0-16.0); LYMPHOCYTES % 15.5 % (20.0-50.0); MEAN CORPUSCULAR HEMOGLOBIN 30.6 pg (28.0-32.0); MEAN CORPUSCULAR VOLUME 96.7 fL (81.0-99.0); MEAN PLATELET VOLUME 8.3 fl (7.4-10.4); MONOCYTES % 6.9 % (2.0-8.0); NEUTROPHILS % 74.3 % (40.0-76.0); PLATELET 157 x1000/uL (130-400); RED BLOOD CELL COUNT 3.37 mill/uL (4.2-5.4); RED CELL DISTRIBUTION WIDTH 18.7 % (11.6-14.6)
[2019-05-09 08:00] VITALS: BP 100/39
[2019-05-09] MEDS: INSULIN LISPRO 100 UNITS/ML SUBCUT SCH ×4 (08:10→21:05)
[2019-05-09] MEDS: PANTOPRAZOLE 40MG DR TABLET PO SCH ×2 (08:58→20:28)
[2019-05-09] MEDS: SEVELAMER CARBONATE 800 MG TABLET PO SCH ×3 (08:58→18:10)
[2019-05-09] MEDS: CARVEDILOL 6.25 MG TABLET PO SCH ×2 (09:00→20:29)
[2019-05-09] MEDS: FOLIC ACID/VITAMIN B COMP W-C TABLET PO SCH (09:09)
[2019-05-09] MEDS ORDERED: BACITRACIN 15GM TUBE TOP ONE (09:13)
[2019-05-09] MEDS ORDERED: LIDOCAINE HCL 1% 20ML VIAL (Pyxis) INJ ONE (09:13)
[2019-05-09] MEDS ORDERED: THROMBIN (BOVINE) 5000 UNITS/VIAL TOP ONE (09:13)
[2019-05-09] MEDS ORDERED: HEPARIN SODIUM 1,000 UNIT/1ML VIAL IV ONE (09:13)
[2019-05-09] MEDS ORDERED: BUPIVACAINE HCL/PF 0.5% (5MG/ML) 10ML ONE ×2 (09:14→10:10)
[2019-05-09] MEDS ORDERED: NORMAL SALINE 0.9% 10 ML SYR ONE (09:14)
[2019-05-09] MEDS ORDERED: BACITRACIN 50,000 UNITS/VIAL ONE (09:14)
[2019-05-09] MEDS ORDERED: LIDOCAINE HCL/EPINEPHRINE 1%-EPI 1:100,000 20 ML VIAL ONE (10:11)
[2019-05-09] MEDS ORDERED: FENTANYL CITRATE/PF 50MCG/ML 2ML VIAL ONE (10:46)
[2019-05-09] MEDS ORDERED: MIDAZOLAM HCL 2 MG/2 ML VIAL ONE (10:46)
[2019-05-09] MEDS ORDERED: GLYCOPYRROLATE 0.2 MG/ML 2ML VIAL ONE (10:46)
[2019-05-09] MEDS ORDERED: ROCURONIUM BROMIDE 10MG/ML VIAL 5ML IV ONE (10:46)
[2019-05-09] MEDS ORDERED: NEOSTIGMINE METHYLSULFATE 1MG/ML 10 ML VIAL ONE (10:46)
[2019-05-09] MEDS ORDERED: PROPOFOL 200MG/20ML VIAL IV ONE (10:46)
[2019-05-09] MEDS ORDERED: ONDANSETRON HCL 4MG/2ML INJ ONE (10:47)
[2019-05-09] MEDS ORDERED: PHENYLEPHRINE HCL 10 MG/ML 1ML (IV VIAL) IV ONE (10:47)
[2019-05-09] MEDS ORDERED: SUCCINYLCHOLINE CHLORIDE 200MG/10ML IV ONE (10:47)
[2019-05-09] MEDS ORDERED: METOCLOPRAMIDE HCL 10MG/2ML VIAL ONE (10:47)
[2019-05-09] MEDS ORDERED: CEFAZOLIN SODIUM 1000MG/VIAL ONE (10:47)
[2019-05-09] MEDS ORDERED: EPHEDRINE SULFATE 50MG/ML VIAL ONE ×2 (10:47→11:09)
[2019-05-09] MEDS ORDERED: SODIUM CHLORIDE 0.9% 10ML VIAL ONE ×2 (10:47→11:09)
[2019-05-09] MEDS ORDERED: DEXAMETHASONE 4MG/ML 1ML VIAL ONE (11:09)
[2019-05-09] MEDS ORDERED: SKIN ADHESIVE 0.7 GM EA TOP ONE (12:08)
[2019-05-09] MEDS: AMOXICILLIN/POTASSIUM CLAVULANATE 500/125MG TAB PO SCH ×3 (15:00→20:28)
[2019-05-09 16:00] VITALS: BP 116/55
[2019-05-09 20:00] VITALS: BP 117/68
[2019-05-09] MEDS: ATORVASTATIN CALCIUM 20MG TABLET PO SCH (20:29)
[2019-05-10 00:44] VITALS: BP 111/58
[2019-05-10 04:00] VITALS: BP 116/64
[2019-05-10] MEDS: SODIUM CHLORIDE 0.9% INJ 3ML FLUSH IVF SCH ×3 (05:43→22:28)
[2019-05-10] MEDS: BLOOD SUGAR DIAGNOSTIC STRIP TEST SCH ×4 (07:40→22:23)
[2019-05-10 08:00] VITALS: BP 131/75
[2019-05-10] MEDS: CARVEDILOL 6.25 MG TABLET PO SCH ×2 (09:00→21:00)
[2019-05-10] MEDS: PANTOPRAZOLE 40MG DR TABLET PO SCH ×2 (09:40→22:22)
[2019-05-10] MEDS: SEVELAMER CARBONATE 800 MG TABLET PO SCH ×3 (09:41→18:10)
[2019-05-10] MEDS: AMOXICILLIN/POTASSIUM CLAVULANATE 500/125MG TAB PO SCH ×2 (09:43→22:22)
[2019-05-10] MEDS: FOLIC ACID/VITAMIN B COMP W-C TABLET PO SCH (09:44)
[2019-05-10] MEDS: INSULIN LISPRO 100 UNITS/ML SUBCUT SCH ×4 (09:46→22:27)
[2019-05-10 12:00] VITALS: BP 126/69
[2019-05-10 16:00] VITALS: BP 116/67
[2019-05-10] MEDS: APIXABAN 2.5 MG TABLET PO SCH (17:00)
[2019-05-10 20:00] VITALS: BP 110/56
[2019-05-10] MEDS: ATORVASTATIN CALCIUM 20MG TABLET PO SCH (22:22)
[2019-05-11] VITALS: BP 105/47
[2019-05-11 04:00] VITALS: BP 130/56
[2019-05-11 06:08] LABS: HEMATOCRIT. 36.3 % (36.0-48.0); HEMOGLOBIN. 11.1 g/dL (12.0-16.0); MEAN CORPUSCULAR HEMOGLOBIN 30.6 pg (28.0-32.0); MEAN CORPUSCULAR VOLUME 99.9 fL (81.0-99.0); MEAN PLATELET VOLUME 8.1 fl (7.4-10.4); PLATELET 163 x1000/uL (130-400); RED BLOOD CELL COUNT 3.63 mill/uL (4.2-5.4)
[2019-05-11] MEDS: SODIUM CHLORIDE 0.9% INJ 3ML FLUSH IVF SCH ×3 (06:31→23:05)
[2019-05-11] MEDS: INSULIN LISPRO 100 UNITS/ML SUBCUT SCH ×4 (07:04→20:26)
[2019-05-11] MEDS: BLOOD SUGAR DIAGNOSTIC STRIP TEST SCH ×4 (07:04→20:26)
[2019-05-11] MEDS: SEVELAMER CARBONATE 800 MG TABLET PO SCH ×3 (07:57→17:12)
[2019-05-11] MEDS: PANTOPRAZOLE 40MG DR TABLET PO SCH ×2 (07:57→20:29)
[2019-05-11 08:00] VITALS: BP 151/73
[2019-05-11] MEDS: FOLIC ACID/VITAMIN B COMP W-C TABLET PO SCH (09:50)
[2019-05-11] MEDS: CARVEDILOL 6.25 MG TABLET PO SCH ×2 (09:50→20:30)
[2019-05-11] MEDS: AMOXICILLIN/POTASSIUM CLAVULANATE 500/125MG TAB PO SCH ×2 (09:50→20:29)
[2019-05-11] MEDS: APIXABAN 2.5 MG TABLET PO SCH ×2 (10:28→17:12)
[2019-05-11 10:59] LABS: PLATELET ESTIMATE NORMAL
[2019-05-11 12:00] VITALS: BP 106/49
[2019-05-11 16:00] VITALS: BP 127/71
[2019-05-11] MEDS ORDERED: LEVOFLOXACIN 500MG PREMIX 100 ML IV NR (18:30)
[2019-05-11 20:00] VITALS: BP 120/47
[2019-05-11] MEDS: ATORVASTATIN CALCIUM 20MG TABLET PO SCH (20:30)
[2019-05-12] VITALS: BP 110/58
[2019-05-12 04:00] VITALS: BP 124/63
[2019-05-12] MEDS: SODIUM CHLORIDE 0.9% INJ 3ML FLUSH IVF SCH ×3 (05:53→23:22)
[2019-05-12 07:30] LABS: BASOPHILS % 0.5 % (0.0-2.0); HEMATOCRIT. 35.4 % (36.0-48.0); HEMOGLOBIN. 10.9 g/dL (12.0-16.0); LYMPHOCYTES % 8.4 % (20.0-50.0); MEAN CORPUSCULAR HEMOGLOBIN 30.5 pg (28.0-32.0); MEAN CORPUSCULAR VOLUME 99.1 fL (81.0-99.0); MEAN PLATELET VOLUME 8.1 fl (7.4-10.4); MONOCYTES % 11.2 % (2.0-8.0); NEUTROPHILS % 77.9 % (40.0-76.0); PLATELET 153 x1000/uL (130-400); RED BLOOD CELL COUNT 3.57 mill/uL (4.2-5.4)
[2019-05-12] MEDS: INSULIN LISPRO 100 UNITS/ML SUBCUT SCH ×4 (08:10→21:00)
[2019-05-12] MEDS: APIXABAN 2.5 MG TABLET PO SCH ×2 (08:32→18:48)
[2019-05-12] MEDS: PANTOPRAZOLE 40MG DR TABLET PO SCH ×2 (08:33→20:47)
[2019-05-12] MEDS: BLOOD SUGAR DIAGNOSTIC STRIP TEST SCH ×4 (08:33→21:00)
[2019-05-12] MEDS: AMOXICILLIN/POTASSIUM CLAVULANATE 500/125MG TAB PO SCH ×2 (08:33→20:47)
[2019-05-12] MEDS: SEVELAMER CARBONATE 800 MG TABLET PO SCH ×3 (08:33→18:48)
[2019-05-12] MEDS: FOLIC ACID/VITAMIN B COMP W-C TABLET PO SCH (08:33)
[2019-05-12] MEDS: CARVEDILOL 6.25 MG TABLET PO SCH ×2 (08:34→20:47)
[2019-05-12 12:00] VITALS: BP 107/62
[2019-05-12 16:00] VITALS: BP 110/48
[2019-05-12 20:00] VITALS: BP 120/63
[2019-05-12] MEDS: ATORVASTATIN CALCIUM 20MG TABLET PO SCH (20:47)
[2019-05-13] VITALS: BP 121/69
[2019-05-13 04:00] VITALS: BP 108/59
[2019-05-13] MEDS: SODIUM CHLORIDE 0.9% INJ 3ML FLUSH IVF SCH (05:07)
[2019-05-13 05:58] LABS: BASOPHILS % 0.3 % (0.0-2.0); EOSINOPHILS % 3.2 % (0.0-5.0); HEMATOCRIT. 30.2 % (36.0-48.0); HEMOGLOBIN. 9.5 g/dL (12.0-16.0); LYMPHOCYTES % 8.3 % (20.0-50.0); MEAN CORPUSCULAR HEMOGLOBIN 30.5 pg (28.0-32.0); MEAN CORPUSCULAR VOLUME 96.8 fL (81.0-99.0); MEAN PLATELET VOLUME 8.3 fl (7.4-10.4); MONOCYTES % 7.1 % (2.0-8.0); NEUTROPHILS % 81.1 % (40.0-76.0); PLATELET 146 x1000/uL (130-400); RED BLOOD CELL COUNT 3.12 mill/uL (4.2-5.4); RED CELL DISTRIBUTION WIDTH 18.1 % (11.6-14.6)
[2019-05-13] MEDS: BLOOD SUGAR DIAGNOSTIC STRIP TEST SCH ×3 (06:21→18:27)
[2019-05-13] MEDS: DEXTROSE 50% WATER 50ML SYRINGE IV PRN (06:45)
[2019-05-13 08:00] VITALS: BP 132/62
[2019-05-13] MEDS: INSULIN LISPRO 100 UNITS/ML SUBCUT SCH ×3 (08:10→18:10)
[2019-05-13] MEDS: SEVELAMER CARBONATE 800 MG TABLET PO SCH ×3 (08:33→17:29)
[2019-05-13] MEDS: AMOXICILLIN/POTASSIUM CLAVULANATE 500/125MG TAB PO SCH (08:34)
[2019-05-13] MEDS: PANTOPRAZOLE 40MG DR TABLET PO SCH (08:34)
[2019-05-13] MEDS: FOLIC ACID/VITAMIN B COMP W-C TABLET PO SCH (08:34)
[2019-05-13] MEDS: APIXABAN 2.5 MG TABLET PO SCH ×2 (08:34→17:29)
[2019-05-13] MEDS: CARVEDILOL 6.25 MG TABLET PO SCH (08:34)
[2019-05-13 12:00] VITALS: BP 77/54
[2019-05-13 15:47] VITALS: BP 114/58
[2019-05-13 16:00] VITALS: BP 114/58
== END 2019-05-13 18:51 | disposition home or self-care (01) | DRG 252 ==
LOC: ER 12:16 → 7WST 13:15 → ENRESERV 15:26
PROVIDERS: ADMIT Internal Medicine; ATTEND Internal Medicine
PROC: 06W Lower Veins, Revision (ICD-10-PCS; principal; 2019-05-09)
PROC: 04WY0JZ Revision of Synthetic Substitute in Lower Artery, Open Approach (ICD-10-PCS; 2019-05-09)
PROC: 5A1D70Z Performance of Urinary Filtration, Intermittent, Less than 6 Hours Per Day (ICD-10-PCS; 2019-05-13)
DX: T82.838A Hemorrhage due to vascular prosthetic devices, implants and grafts, initial encounter (principal); N18.6 End stage renal disease; I48.20 Chronic atrial fibrillation, unspecified; I13.2 Hypertensive heart and chronic kidney disease with heart failure and with stage 5 chronic kidney disease, or end stage renal disease; I50.22 Chronic systolic (congestive) heart failure; N25.81 Secondary hyperparathyroidism of renal origin; Z99.2 Dependence on renal dialysis; Z89.511 Acquired absence of right leg below knee; Z79.01 Long term (current) use of anticoagulants; Z89.612 Acquired absence of left leg above knee; K21.9 Gastro-esophageal reflux disease without esophagitis; I50.9 Heart failure, unspecified; I25.10 Atherosclerotic heart disease of native coronary artery without angina pectoris; I27.20 Pulmonary hypertension, unspecified; E11.51 Type 2 diabetes mellitus with diabetic peripheral angiopathy without gangrene; E11.22 Type 2 diabetes mellitus with diabetic chronic kidney disease; Y83.8 Other surgical procedures as the cause of abnormal reaction of the patient, or of later complication, without mention of misadventure at the time of the procedure; Y92.89 Other specified places as the place of occurrence of the external cause; D64.9 Anemia, unspecified; E78.00 Pure hypercholesterolemia, unspecified; E78.5 Hyperlipidemia, unspecified; E87.5 Hyperkalemia; I25.2 Old myocardial infarction; I25.5 Ischemic cardiomyopathy; I27.21 Secondary pulmonary arterial hypertension; Z89.512 Acquired absence of left leg below knee; Z89.611 Acquired absence of right leg above knee; Z95.5 Presence of coronary angioplasty implant and graft
CPT/HCPCS: 36415; 80048; 80051; 82962; 83735; 86850; 86900; 87070; 87075; 87077; 87186; 88304; 99285; A6261; J0330; J0690; J1100; J1644; J1815; J1956; J2250; J2270; J2370; J2405; J2597; J2704; J2710; J2765; J3010; J3490

== ENCOUNTER 2020-03-05 10:45 | Emergency (ER) | payer MEDICARE, MEDICAID ==
[~2020-03-05] VITALS: Ht 121.9 cm; Wt 55.0 kg
[~2020-03-05 10:45] MED LIST changes: +FOLI0.8T23 MT; +GLIM1TAB MT; -GLIM1TAB2 MT; +LORA10TA7 PO; -NEPVIT MT
[2020-03-05] MEDS ORDERED: DIAZEPAM 2 MG TABLET PO ONE (11:30)
[2020-03-05 11:46] LABS: BASOPHILS % 1.3 % (0.0-2.0); EOSINOPHILS % 4.8 % (0.0-5.0); HEMATOCRIT. 40.3 % (36.0-48.0); HEMOGLOBIN. 13.2 g/dL (12.0-16.0); LYMPHOCYTES % 15.5 % (20.0-50.0); MEAN CORPUSCULAR HEMOGLOBIN 30.4 pg (28.0-32.0); MEAN CORPUSCULAR VOLUME 92.6 fL (81.0-99.0); MEAN PLATELET VOLUME 8.6 fl (7.4-10.4); MONOCYTES % 7.3 % (2.0-8.0); NEUTROPHILS % 71.1 % (40.0-76.0); PLATELET 139 x1000/uL (130-400); RED BLOOD CELL COUNT 4.35 mill/uL (4.2-5.4)
[2020-03-05 21:38] VITALS: BP 144/80
== END 2020-03-05 21:45 | disposition home or self-care (01) ==
LOC: ER 10:45
DX: M54.12 Radiculopathy, cervical region (principal); M25.511 Pain in right shoulder; N17.9 Acute kidney failure, unspecified; I12.0 Hypertensive chronic kidney disease with stage 5 chronic kidney disease or end stage renal disease; E11.22 Type 2 diabetes mellitus with diabetic chronic kidney disease; N18.6 End stage renal disease; I48.91 Unspecified atrial fibrillation; I45.2 Bifascicular block; Z99.2 Dependence on renal dialysis; Z79.4 Long term (current) use of insulin; Z79.84 Long term (current) use of oral hypoglycemic drugs; E87.8 Other disorders of electrolyte and fluid balance, not elsewhere classified; I25.2 Old myocardial infarction; Z79.01 Long term (current) use of anticoagulants
CPT/HCPCS: 36415; 71045; 73030; 80048; 84484; 85025; 93005; 99285

== ENCOUNTER 2020-06-04 07:58 | Inpatient (IN) | payer MEDICARE, MEDICAID ==
[~2020-06-04] VITALS: Ht 152.4 cm; Wt 60.8 kg
[2020-06-04] MEDS ORDERED: ONDANSETRON HCL 4MG/2ML INJ IV STA (08:21)
[2020-06-04] MEDS ORDERED: MORPHINE SULFATE 4 MG/ML CPJ (NOT FOR IM USE) IV STA (08:21)
[2020-06-04 09:04] LABS: BASOPHILS % 0.4 % (0.0-2.0); EOSINOPHILS % 0.5 % (0.0-5.0); HEMATOCRIT. 38.5 % (36.0-48.0); HEMOGLOBIN. 12.3 g/dL (12.0-16.0); LYMPHOCYTES % 7.7 % (20.0-50.0); MEAN CORPUSCULAR HEMOGLOBIN 29.2 pg (28.0-32.0); MEAN CORPUSCULAR VOLUME 91.3 fL (81.0-99.0); MEAN PLATELET VOLUME 7.9 fl (7.4-10.4); MONOCYTES % 5.2 % (2.0-8.0); NEUTROPHILS % 86.2 % (40.0-76.0); PLATELET 150 x1000/uL (130-400); RED BLOOD CELL COUNT 4.22 mill/uL (4.2-5.4); RED CELL DISTRIBUTION WIDTH 16.1 % (11.6-14.6)
[2020-06-04 09:11] LABS: CHLORIDE 95 mEq/L (98-107)
[2020-06-04 09:14] LABS: INR 1.2; PROTHROMBIN TIME 12.1 sec (9.6-11.0)
[2020-06-04] MEDS ORDERED: DEXTROSE 50% WATER 50ML SYRINGE IV ONE (09:30)
[2020-06-04] MEDS ORDERED: HYDROCODONE/ACETAMINOPHEN 5/325MG TABLET PO ONE (10:15)
[2020-06-04] MEDS ORDERED: POTASSIUM CHLORIDE 20MEQ TABLET SR PO ONE (10:30)
[2020-06-04 13:18] VITALS: BP 116/62
[2020-06-04] MEDS ORDERED: SEVE800T8 MT (13:47)
[2020-06-04] MEDS ORDERED: ATOR20TA65 MT (13:47)
[2020-06-04] MEDS ORDERED: METH500T6 MT (13:47)
[2020-06-04 14:03] VITALS: BP 116/92
[2020-06-04] MEDS ORDERED: ZOLPIDEM TARTRATE 5MG TABLET PO PRN (15:00)
[2020-06-04] MEDS ORDERED: IPRATROPIUM/ALBUTEROL 0.5-3(2.5)MG/3ML NEB HHN PRN (15:15)
[2020-06-04] MEDS ORDERED: DIPHENHYDRAMINE 50MG/ML VIAL IV PRN (15:15)
[2020-06-04] MEDS ORDERED: ONDANSETRON HCL 4MG/2ML INJ IV PRN (15:15)
[2020-06-04] MEDS ORDERED: ACETAMINOPHEN 325MG TABLET PO PRN (15:15)
[2020-06-04 16:00] VITALS: BP_SYST 107; BP_DIAS 6; BP_DIAS 66
[2020-06-04] MEDS: AMIODARONE HCL 200 MG TABLET PO SCH (16:54)
[2020-06-04] MEDS: ENOXAPARIN 100MG/ML SYR SUBCUT SCH (16:54)
[2020-06-04] MEDS: PANTOPRAZOLE 40MG DR TABLET PO SCH (16:55)
[2020-06-04] MEDS: FOLIC ACID/VITAMIN B COMP W-C TABLET PO SCH (16:55)
[2020-06-04] MEDS: SEVELAMER CARBONATE 800 MG TABLET PO SCH (16:55)
[2020-06-04] MEDS: BLOOD SUGAR DIAGNOSTIC STRIP TEST SCH ×2 (16:55→20:03)
[2020-06-04] MEDS: LORATADINE 10MG TABLET PO SCH (16:55)
[2020-06-04] MEDS: INSULIN LISPRO 100 UNITS/ML SUBCUT SCH ×2 (16:56→20:03)
[2020-06-04] MEDS ORDERED: PNEUMOCOCCAL 23-VAL P-SAC VAC 0.5 ML IM ONE (17:45)
[2020-06-04 20:00] VITALS: BP 147/69
[2020-06-04] MEDS: ATORVASTATIN CALCIUM 20MG TABLET PO SCH (20:01)
[2020-06-04] MEDS: SODIUM CHLORIDE 0.9% INJ 3ML FLUSH IVF SCH (23:45)
[2020-06-05] VITALS: BP 130/77
[2020-06-05 04:00] VITALS: BP 119/58
[2020-06-05] MEDS: BLOOD SUGAR DIAGNOSTIC STRIP TEST SCH ×4 (06:59→21:17)
[2020-06-05] MEDS: DEXTROSE 50% WATER 50ML SYRINGE IV PRN (07:00)
[2020-06-05] MEDS: INSULIN LISPRO 100 UNITS/ML SUBCUT SCH ×4 (07:40→21:00)
[2020-06-05] MEDS: PANTOPRAZOLE 40MG DR TABLET PO SCH (07:44)
[2020-06-05] MEDS: SEVELAMER CARBONATE 800 MG TABLET PO SCH ×3 (07:44→17:36)
[2020-06-05] MEDS: SODIUM CHLORIDE 0.9% INJ 3ML FLUSH IVF SCH ×3 (07:45→21:52)
[2020-06-05 08:00] VITALS: BP 138/73
[2020-06-05] MEDS: FOLIC ACID/VITAMIN B COMP W-C TABLET PO SCH (08:25)
[2020-06-05] MEDS: LORATADINE 10MG TABLET PO SCH (08:26)
[2020-06-05] MEDS: AMIODARONE HCL 200 MG TABLET PO SCH (08:26)
[2020-06-05] MEDS: ENOXAPARIN 100MG/ML SYR SUBCUT SCH (08:28)
[2020-06-05] MEDS ORDERED: AMIODARONE HCL 200 MG TABLET PO SCH (09:00)
[2020-06-05 11:47] VITALS: BP 124/60
[2020-06-05 13:12] LABS: HEMATOCRIT. 37.5 % (36.0-48.0); MEAN CORPUSCULAR HEMOGLOBIN 29.3 pg (28.0-32.0); MEAN CORPUSCULAR VOLUME 91.8 fL (81.0-99.0); MEAN PLATELET VOLUME 8.5 fl (7.4-10.4); PLATELET 147 x1000/uL (130-400); RED BLOOD CELL COUNT 4.08 mill/uL (4.2-5.4); RED CELL DISTRIBUTION WIDTH 16.2 % (11.6-14.6)
[2020-06-05 13:40] LABS: PLATELET ESTIMATE NORMAL
[2020-06-05 16:00] VITALS: BP 88/50
[2020-06-05 20:00] VITALS: BP 122/59
[2020-06-05] MEDS: ATORVASTATIN CALCIUM 20MG TABLET PO SCH (21:45)
[2020-06-06] VITALS: BP 102/61
[2020-06-06 04:00] VITALS: BP 125/69
[2020-06-06] MEDS: ACETAMINOPHEN 325MG TABLET PO PRN (04:26)
[2020-06-06] MEDS: BLOOD SUGAR DIAGNOSTIC STRIP TEST SCH ×4 (07:03→21:01)
[2020-06-06] MEDS: INSULIN LISPRO 100 UNITS/ML SUBCUT SCH ×4 (07:04→21:00)
[2020-06-06] MEDS: SODIUM CHLORIDE 0.9% INJ 3ML FLUSH IVF SCH ×3 (07:11→21:01)
[2020-06-06] MEDS: PANTOPRAZOLE 40MG DR TABLET PO SCH (07:11)
[2020-06-06 07:23] LABS: BASOPHILS % 0.7 % (0.0-2.0); HEMATOCRIT. 37.5 % (36.0-48.0); LYMPHOCYTES % 17.8 % (20.0-50.0); MEAN CORPUSCULAR HEMOGLOBIN 29.8 pg (28.0-32.0); MEAN CORPUSCULAR VOLUME 93.3 fL (81.0-99.0); MEAN PLATELET VOLUME 8.5 fl (7.4-10.4); MONOCYTES % 7.8 % (2.0-8.0); NEUTROPHILS % 70.7 % (40.0-76.0); PLATELET 133 x1000/uL (130-400); RED BLOOD CELL COUNT 4.02 mill/uL (4.2-5.4); RED CELL DISTRIBUTION WIDTH 16.3 % (11.6-14.6)
[2020-06-06 08:00] VITALS: BP 126/68
[2020-06-06] MEDS: FOLIC ACID/VITAMIN B COMP W-C TABLET PO SCH (09:52)
[2020-06-06] MEDS: SEVELAMER CARBONATE 800 MG TABLET PO SCH ×3 (09:52→16:47)
[2020-06-06] MEDS: ENOXAPARIN 100MG/ML SYR SUBCUT SCH (09:53)
[2020-06-06] MEDS: AMIODARONE HCL 200 MG TABLET PO SCH (09:53)
[2020-06-06] MEDS: LORATADINE 10MG TABLET PO SCH (09:53)
[2020-06-06 12:00] VITALS: BP 113/80
[2020-06-06 16:00] VITALS: BP 140/77
[2020-06-06 20:00] VITALS: BP 118/62
[2020-06-06] MEDS: ATORVASTATIN CALCIUM 20MG TABLET PO SCH (21:01)
[2020-06-07] VITALS: BP 124/73
[2020-06-07 04:00] VITALS: BP 151/79
[2020-06-07] MEDS: SODIUM CHLORIDE 0.9% INJ 3ML FLUSH IVF SCH ×3 (06:06→20:37)
[2020-06-07] MEDS: BLOOD SUGAR DIAGNOSTIC STRIP TEST SCH ×4 (06:11→20:47)
[2020-06-07] MEDS: PANTOPRAZOLE 40MG DR TABLET PO SCH (06:11)
[2020-06-07 06:28] LABS: BASOPHILS % 0.6 % (0.0-2.0); EOSINOPHILS % 1.6 % (0.0-5.0); HEMATOCRIT. 37.4 % (36.0-48.0); HEMOGLOBIN. 12.1 g/dL (12.0-16.0); LYMPHOCYTES % 10.2 % (20.0-50.0); MEAN CORPUSCULAR HEMOGLOBIN 30.1 pg (28.0-32.0); MEAN PLATELET VOLUME 8.8 fl (7.4-10.4); MONOCYTES % 7.1 % (2.0-8.0); NEUTROPHILS % 80.5 % (40.0-76.0); PLATELET 135 x1000/uL (130-400); RED BLOOD CELL COUNT 4.02 mill/uL (4.2-5.4); RED CELL DISTRIBUTION WIDTH 16.2 % (11.6-14.6)
[2020-06-07] MEDS: INSULIN LISPRO 100 UNITS/ML SUBCUT SCH ×4 (07:40→20:47)
[2020-06-07 08:00] VITALS: BP 145/92
[2020-06-07] MEDS: ENOXAPARIN 100MG/ML SYR SUBCUT SCH (09:00)
[2020-06-07] MEDS: LORATADINE 10MG TABLET PO SCH (09:01)
[2020-06-07] MEDS: AMIODARONE HCL 200 MG TABLET PO SCH (09:01)
[2020-06-07] MEDS: FOLIC ACID/VITAMIN B COMP W-C TABLET PO SCH (09:01)
[2020-06-07] MEDS: SEVELAMER CARBONATE 800 MG TABLET PO SCH ×3 (09:01→17:40)
[2020-06-07 12:00] VITALS: BP 139/88
[2020-06-07 16:00] VITALS: BP 110/59
[2020-06-07] MEDS ORDERED: LORAZEPAM 0.5MG TABLET PO PRN (18:00)
[2020-06-07 20:00] VITALS: BP 133/84
[2020-06-07] MEDS: ATORVASTATIN CALCIUM 20MG TABLET PO SCH (20:36)
[2020-06-08] VITALS (7 sets, daily range): BP systolic 120–159; BP diastolic 64–89
[2020-06-08] MEDS: PANTOPRAZOLE 40MG DR TABLET PO SCH (05:49)
[2020-06-08] MEDS: INSULIN LISPRO 100 UNITS/ML SUBCUT SCH ×3 (05:51→17:40)
[2020-06-08] MEDS: BLOOD SUGAR DIAGNOSTIC STRIP TEST SCH ×3 (05:51→17:10)
[2020-06-08] MEDS: SODIUM CHLORIDE 0.9% INJ 3ML FLUSH IVF SCH ×2 (06:03→14:23)
[2020-06-08] MEDS: DEXTROSE 50% WATER 50ML SYRINGE IV PRN (06:27)
[2020-06-08 06:59] LABS: EOSINOPHILS % 1.3 % (0.0-5.0); HEMATOCRIT. 35.4 % (36.0-48.0); HEMOGLOBIN. 11.5 g/dL (12.0-16.0); LYMPHOCYTES % 14.2 % (20.0-50.0); MEAN CORPUSCULAR HEMOGLOBIN 29.9 pg (28.0-32.0); MEAN CORPUSCULAR VOLUME 91.8 fL (81.0-99.0); MEAN PLATELET VOLUME 8.7 fl (7.4-10.4); MONOCYTES % 7.8 % (2.0-8.0); NEUTROPHILS % 75.7 % (40.0-76.0); PLATELET 159 x1000/uL (130-400); RED BLOOD CELL COUNT 3.85 mill/uL (4.2-5.4); RED CELL DISTRIBUTION WIDTH 16.2 % (11.6-14.6)
[2020-06-08] MEDS: ENOXAPARIN 100MG/ML SYR SUBCUT SCH (09:11)
[2020-06-08] MEDS: SEVELAMER CARBONATE 800 MG TABLET PO SCH ×3 (09:11→17:40)
[2020-06-08] MEDS: FOLIC ACID/VITAMIN B COMP W-C TABLET PO SCH (09:11)
[2020-06-08] MEDS: LORATADINE 10MG TABLET PO SCH (09:11)
[2020-06-08] MEDS: AMIODARONE HCL 200 MG TABLET PO SCH (09:11)
[2020-06-08] MEDS: ACETAMINOPHEN 325MG TABLET PO PRN (21:11)
== END 2020-06-08 21:30 | disposition home or self-care (01) | DRG 637 ==
LOC: ER 08:05 → 8WST 10:15 → ENRESERV 11:53
PROVIDERS: ADMIT Internal Medicine; ATTEND Internal Medicine
PROC: 5A1D70Z Performance of Urinary Filtration, Intermittent, Less than 6 Hours Per Day (ICD-10-PCS; principal; 2020-06-05)
PROC: 5A1D70Z Performance of Urinary Filtration, Intermittent, Less than 6 Hours Per Day (ICD-10-PCS; 2020-06-08)
DX: E11.649 Type 2 diabetes mellitus with hypoglycemia without coma (principal); G93.41 Metabolic encephalopathy; M84.48XA Pathological fracture, other site, initial encounter for fracture; I48.20 Chronic atrial fibrillation, unspecified; I13.2 Hypertensive heart and chronic kidney disease with heart failure and with stage 5 chronic kidney disease, or end stage renal disease; I50.22 Chronic systolic (congestive) heart failure; N18.6 End stage renal disease; N25.81 Secondary hyperparathyroidism of renal origin; E11.22 Type 2 diabetes mellitus with diabetic chronic kidney disease; K59.00 Constipation, unspecified; K80.20 Calculus of gallbladder without cholecystitis without obstruction; I70.0 Atherosclerosis of aorta; E11.51 Type 2 diabetes mellitus with diabetic peripheral angiopathy without gangrene; M48.061 Spinal stenosis, lumbar region without neurogenic claudication; D25.9 Leiomyoma of uterus, unspecified; D64.9 Anemia, unspecified; E78.00 Pure hypercholesterolemia, unspecified; F29 Unspecified psychosis not due to a substance or known physiological condition; I25.10 Atherosclerotic heart disease of native coronary artery without angina pectoris; I25.5 Ischemic cardiomyopathy; K21.9 Gastro-esophageal reflux disease without esophagitis; K42.9 Umbilical hernia without obstruction or gangrene; Z89.511 Acquired absence of right leg below knee; Z89.612 Acquired absence of left leg above knee; I25.2 Old myocardial infarction; Z95.5 Presence of coronary angioplasty implant and graft; Z99.2 Dependence on renal dialysis; Z79.899 Other long term (current) drug therapy; Z89.512 Acquired absence of left leg below knee
CPT/HCPCS: 36415; 71045; 72148; 74176; 80048; 80053; 82962; 83036; 84443; 85025; 90732; 93005; 99285; J1650; J1815; J2270; J2405

== ENCOUNTER 2020-07-14 07:11 | Emergency (ER) | payer MEDICARE, MEDICAID ==
[~2020-07-14] VITALS: Ht 162.6 cm; Wt 68.0 kg
[~2020-07-14 07:11] MED LIST changes: -ATOR20TA PO; +ATOR20TA65 MT; -GLIM1TAB MT; +METH500T6 MT; +SEVE800T8 MT
[2020-07-14 08:38] LABS: HEMATOCRIT. 39.4 % (36.0-48.0); HEMOGLOBIN. 12.5 g/dL (12.0-16.0); MEAN CORPUSCULAR HEMOGLOBIN 28.8 pg (28.0-32.0); MEAN PLATELET VOLUME 9.3 fl (7.4-10.4); PLATELET 107 x1000/uL (130-400); RED BLOOD CELL COUNT 4.33 mill/uL (4.2-5.4); RED CELL DISTRIBUTION WIDTH 16.5 % (11.6-14.6)
[2020-07-14 08:47] LABS: CHLORIDE 97 mEq/L (98-107)
[2020-07-14 09:02] LABS: PLATELET ESTIMATE SLIGHTLY DECREASED
[2020-07-14 13:59] VITALS: BP 130/89
== END 2020-07-14 15:31 | disposition home or self-care (01) ==
LOC: ER 07:29
DX: E11.649 Type 2 diabetes mellitus with hypoglycemia without coma (principal); I12.0 Hypertensive chronic kidney disease with stage 5 chronic kidney disease or end stage renal disease; E11.22 Type 2 diabetes mellitus with diabetic chronic kidney disease; N18.6 End stage renal disease; I25.10 Atherosclerotic heart disease of native coronary artery without angina pectoris; E78.00 Pure hypercholesterolemia, unspecified; Z99.2 Dependence on renal dialysis; Z79.899 Other long term (current) drug therapy; Z98.890 Other specified postprocedural states
CPT/HCPCS: 36415; 71045; 80053; 82962; 83605; 84145; 84484; 85025; 93005; 99285

== ENCOUNTER → 2021-02-23 | Day surgery (SDC) | payer MEDICARE, MEDICAID ==
[~2021-02-23] VITALS: Ht 162.6 cm; Wt 46.5 kg
[~2021-02-23] MED LIST changes: +BACITRACIN 15GM TUBE TOP ONE; +BUPIVACAINE HCL/PF 0.5% (5MG/ML) 10ML ONE; +CALCIUM CHLORIDE 1GM/10ML SYR IV ONE; +CINA30 PO; +HEPARIN SODIUM 1,000 UNIT/1ML VIAL IV ONE; +HEPARIN SODIUM 1,000 UNIT/1ML VIAL IV SCH; +IBUPROFEN 400MG TABLET PO PRN; +INSU100I41 SUBCUT; +LABETALOL 5MG/ML SYR 20 MG/4 ML SYRINGE IV PRN; +LIDOCAINE HCL 1% 20ML VIAL (Pyxis) INJ ONE; +MEPERIDINE HCL/PF 25MG/ML CPJ IV PRN; +ONDANSETRON HCL 4MG/2ML INJ IV PRN; +RA COL-RITE PO; +SODIUM CHLORIDE 0.9% 500 ML IV ONE; +THROMBIN (BOVINE) 5000 UNITS/VIAL TOP ONE; +VASOPRESSIN 20 UNIT/ML 1ML ONE
[2021-02-23 08:54] LABS: BASOPHILS % 1.2 % (0.0-2.0); HEMATOCRIT. 37.4 % (36.0-48.0); LYMPHOCYTES % 16.9 % (20.0-50.0); MEAN CORPUSCULAR HEMOGLOBIN 29.6 pg (28.0-32.0); MEAN CORPUSCULAR VOLUME 91.9 fL (81.0-99.0); MEAN PLATELET VOLUME 7.7 fl (7.4-10.4); MONOCYTES % 7.8 % (2.0-8.0); NEUTROPHILS % 73.1 % (40.0-76.0); PLATELET 147 x1000/uL (130-400); RED BLOOD CELL COUNT 4.07 mill/uL (4.2-5.4); RED CELL DISTRIBUTION WIDTH 15.4 % (11.6-14.6)
[2021-02-23 09:06] LABS: INR 1.1; PARTIAL THROMBOPLASTIN TIME 33.8 sec (23.4-31.0); PROTHROMBIN TIME 11.6 sec (9.6-11.0)
[2021-02-23 13:38] VITALS: BP 109/83
== END | disposition home or self-care (01) ==
LOC: OR 08:17
PROVIDERS: ATTEND Surgery Vascular Surgery
DX: I13.2 Hypertensive heart and chronic kidney disease with heart failure and with stage 5 chronic kidney disease, or end stage renal disease (principal); I50.9 Heart failure, unspecified; N18.6 End stage renal disease; E78.00 Pure hypercholesterolemia, unspecified; I25.10 Atherosclerotic heart disease of native coronary artery without angina pectoris; I48.91 Unspecified atrial fibrillation; Z99.2 Dependence on renal dialysis; E11.22 Type 2 diabetes mellitus with diabetic chronic kidney disease; Z79.82 Long term (current) use of aspirin; Z79.4 Long term (current) use of insulin; Z79.899 Other long term (current) drug therapy; Z98.890 Other specified postprocedural states; Z82.49 Family history of ischemic heart disease and other diseases of the circulatory system; Z83.3 Family history of diabetes mellitus; Z20.822 Contact with and (suspected) exposure to COVID-19
CPT/HCPCS: 35903; 36415; 80048; 82962; 85025; 85610; 85730; 87070; 87075; 87077; 87186; 87205; 87426; 88304; 93005; J1644; J2175; J3490; J7040; J2405

== ENCOUNTER 2021-04-27 16:06 | Inpatient (IN) | payer MEDICARE, MEDICAID ==
[~2021-04-27] VITALS: Ht 162.6 cm; Wt 48.1 kg
[~2021-04-27 16:06] MED LIST changes: +ATOR40TA70 PO; -BACITRACIN 15GM TUBE TOP ONE; -BUPIVACAINE HCL/PF 0.5% (5MG/ML) 10ML ONE; -CALCIUM CHLORIDE 1GM/10ML SYR IV ONE; -HEPARIN SODIUM 1,000 UNIT/1ML VIAL IV ONE; -HEPARIN SODIUM 1,000 UNIT/1ML VIAL IV SCH; -IBUPROFEN 400MG TABLET PO PRN; -LABETALOL 5MG/ML SYR 20 MG/4 ML SYRINGE IV PRN; -LIDOCAINE HCL 1% 20ML VIAL (Pyxis) INJ ONE; -LORA10TA7 PO; -MEPERIDINE HCL/PF 25MG/ML CPJ IV PRN; +METH-773 MT; -METH500T6 MT; -ONDANSETRON HCL 4MG/2ML INJ IV PRN; -SODIUM CHLORIDE 0.9% 500 ML IV ONE; -THROMBIN (BOVINE) 5000 UNITS/VIAL TOP ONE; +TOPUD PO; -VASOPRESSIN 20 UNIT/ML 1ML ONE
[2021-04-27] MEDS ORDERED: DEXTROSE 50% WATER 50ML SYRINGE IV ONE ×2 (17:00→17:10)
[2021-04-27 17:55] LABS: BASOPHILS % 0.3 % (0.0-2.0); EOSINOPHILS % 1.7 % (0.0-5.0); HEMATOCRIT. 28.9 % (36.0-48.0); HEMOGLOBIN. 9.1 g/dL (12.0-16.0); LYMPHOCYTES % 11.6 % (20.0-50.0); MEAN CORPUSCULAR HEMOGLOBIN 30.1 pg (28.0-32.0); MEAN CORPUSCULAR VOLUME 96.1 fL (81.0-99.0); MEAN PLATELET VOLUME 7.8 fl (7.4-10.4); MONOCYTES % 7.3 % (2.0-8.0); NEUTROPHILS % 79.1 % (40.0-76.0); PLATELET 210 x1000/uL (130-400); RED BLOOD CELL COUNT 3.01 mill/uL (4.2-5.4); RED CELL DISTRIBUTION WIDTH 15.7 % (11.6-14.6)
[2021-04-27 18:03] LABS: CHLORIDE 99 mEq/L (98-107)
[2021-04-27] MEDS ORDERED: DEXT 10% WATER 1,000 ML IV SCH (21:45)
[2021-04-28] VITALS (7 sets, daily range): BP systolic 101–127; BP diastolic 47–67
[2021-04-28] MEDS ORDERED: DEXTROSE 50% WATER 50ML SYRINGE IV PRN (00:15)
[2021-04-28] MEDS ORDERED: ACETAMINOPHEN 650MG/20.3ML UDC PO PRN (00:15)
[2021-04-28 01:12] LABS: HEPATITIS B SURFACE ANTIGEN NEGATIVE
[2021-04-28] MEDS: MEROPENEM 500 MG in SODIUM CHLORIDE 0.9% 50 ML IV SCH (01:46)
[2021-04-28] MEDS: DILTIAZEM HCL 60MG TABLET PO SCH ×3 (05:50→22:24)
[2021-04-28 06:23] LABS: BASOPHILS % 0.6 % (0.0-2.0); EOSINOPHILS % 4.3 % (0.0-5.0); HEMOGLOBIN. 8.7 g/dL (12.0-16.0); LYMPHOCYTES % 23.4 % (20.0-50.0); MEAN CORPUSCULAR HEMOGLOBIN 29.9 pg (28.0-32.0); MEAN CORPUSCULAR VOLUME 96.1 fL (81.0-99.0); MEAN PLATELET VOLUME 8.6 fl (7.4-10.4); MONOCYTES % 6.8 % (2.0-8.0); NEUTROPHILS % 64.9 % (40.0-76.0); PLATELET 209 x1000/uL (130-400); RED BLOOD CELL COUNT 2.92 mill/uL (4.2-5.4); RED CELL DISTRIBUTION WIDTH 15.9 % (11.6-14.6)
[2021-04-28] MEDS: BLOOD SUGAR DIAGNOSTIC STRIP TEST SCH ×4 (06:40→21:00)
[2021-04-28 06:50] LABS: PHOSPHORUS 2.5 mg/dL (2.5-4.9)
[2021-04-28] MEDS: INSULIN LISPRO 100 UNITS/ML SUBCUT SCH ×4 (07:10→21:00)
[2021-04-28] MEDS: CINACALCET HCL 30MG TABLET PO SCH (09:25)
[2021-04-28] MEDS: FOLIC ACID/VITAMIN B COMP W-C TABLET PO SCH (09:25)
[2021-04-28] MEDS: CALCIUM ACETATE 667MG CAPSULE PO SCH ×3 (09:25→17:12)
[2021-04-28] MEDS: APIXABAN 2.5 MG TABLET PO SCH ×2 (09:25→17:12)
[2021-04-28] MEDS: ATORVASTATIN CALCIUM 20MG TABLET PO SCH (22:23)
[2021-04-29] VITALS: BP 101/53
[2021-04-29 04:00] VITALS: BP 109/58
[2021-04-29] MEDS: DILTIAZEM HCL 60MG TABLET PO SCH ×2 (05:05→13:00)
[2021-04-29] MEDS: BLOOD SUGAR DIAGNOSTIC STRIP TEST SCH ×4 (05:38→21:00)
[2021-04-29] MEDS: INSULIN LISPRO 100 UNITS/ML SUBCUT SCH ×4 (05:38→21:00)
[2021-04-29 08:00] VITALS: BP 127/60
[2021-04-29] MEDS: MEROPENEM 500 MG in SODIUM CHLORIDE 0.9% 50 ML IV SCH (09:01)
[2021-04-29] MEDS: CINACALCET HCL 30MG TABLET PO SCH (09:01)
[2021-04-29] MEDS: CALCIUM ACETATE 667MG CAPSULE PO SCH ×3 (09:02→17:55)
[2021-04-29] MEDS: APIXABAN 2.5 MG TABLET PO SCH ×2 (09:02→17:55)
[2021-04-29] MEDS: FOLIC ACID/VITAMIN B COMP W-C TABLET PO SCH (09:02)
[2021-04-29 12:00] VITALS: BP 114/57
[2021-04-29 16:02] VITALS: BP 130/67
[2021-04-29 20:00] VITALS: BP 126/77
[2021-04-30] VITALS: BP 126/54
[2021-04-30] MEDS: DILTIAZEM HCL 60MG TABLET PO SCH ×3 (00:22→14:00)
[2021-04-30] MEDS: ATORVASTATIN CALCIUM 20MG TABLET PO SCH (00:22)
[2021-04-30 04:00] VITALS: BP 138/73
[2021-04-30] MEDS: BLOOD SUGAR DIAGNOSTIC STRIP TEST SCH ×3 (05:42→16:40)
[2021-04-30] MEDS: INSULIN LISPRO 100 UNITS/ML SUBCUT SCH ×3 (07:10→17:10)
[2021-04-30 07:18] LABS: BASOPHILS % 0.5 % (0.0-2.0); EOSINOPHILS % 2.6 % (0.0-5.0); HEMATOCRIT. 24.8 % (36.0-48.0); HEMOGLOBIN. 8.1 g/dL (12.0-16.0); LYMPHOCYTES % 16.3 % (20.0-50.0); MEAN CORPUSCULAR HEMOGLOBIN 30.2 pg (28.0-32.0); MEAN CORPUSCULAR VOLUME 92.4 fL (81.0-99.0); MEAN PLATELET VOLUME 7.6 fl (7.4-10.4); MONOCYTES % 8.3 % (2.0-8.0); NEUTROPHILS % 72.3 % (40.0-76.0); PLATELET 199 x1000/uL (130-400); RED BLOOD CELL COUNT 2.68 mill/uL (4.2-5.4); RED CELL DISTRIBUTION WIDTH 15.8 % (11.6-14.6)
[2021-04-30] MEDS: APIXABAN 2.5 MG TABLET PO SCH ×2 (12:11→17:00)
[2021-04-30] MEDS: FOLIC ACID/VITAMIN B COMP W-C TABLET PO SCH (12:11)
[2021-04-30] MEDS: MEROPENEM 500 MG in SODIUM CHLORIDE 0.9% 50 ML IV SCH (12:11)
[2021-04-30] MEDS: CALCIUM ACETATE 667MG CAPSULE PO SCH ×3 (12:11→17:10)
[2021-04-30] MEDS: CINACALCET HCL 30MG TABLET PO SCH (12:11)
[2021-04-30 18:46] VITALS: BP 137/56
[2021-04-30 20:00] VITALS: BP 117/53
== END 2021-04-30 20:26 | disposition home health service (06) | DRG 70 ==
LOC: ER 16:06 → 7EST 20:16 → ENRESERV 20:26
PROVIDERS: ADMIT Internal Medicine; ATTEND Internal Medicine
PROC: 5A1D70Z Performance of Urinary Filtration, Intermittent, Less than 6 Hours Per Day (ICD-10-PCS; principal; 2021-04-28)
PROC: 5A1D70Z Performance of Urinary Filtration, Intermittent, Less than 6 Hours Per Day (ICD-10-PCS; 2021-04-30)
DX: G93.41 Metabolic encephalopathy (principal); N18.6 End stage renal disease; I13.2 Hypertensive heart and chronic kidney disease with heart failure and with stage 5 chronic kidney disease, or end stage renal disease; I48.20 Chronic atrial fibrillation, unspecified; I50.22 Chronic systolic (congestive) heart failure; N25.81 Secondary hyperparathyroidism of renal origin; E11.649 Type 2 diabetes mellitus with hypoglycemia without coma; D63.1 Anemia in chronic kidney disease; E11.22 Type 2 diabetes mellitus with diabetic chronic kidney disease; I25.5 Ischemic cardiomyopathy; E11.51 Type 2 diabetes mellitus with diabetic peripheral angiopathy without gangrene; E78.00 Pure hypercholesterolemia, unspecified; I25.10 Atherosclerotic heart disease of native coronary artery without angina pectoris; I48.0 Paroxysmal atrial fibrillation; K21.9 Gastro-esophageal reflux disease without esophagitis; I25.2 Old myocardial infarction; Z89.511 Acquired absence of right leg below knee; Z89.612 Acquired absence of left leg above knee; Z95.5 Presence of coronary angioplasty implant and graft; Z99.2 Dependence on renal dialysis; Z79.899 Other long term (current) drug therapy; Z79.4 Long term (current) use of insulin; Z79.01 Long term (current) use of anticoagulants; Z98.890 Other specified postprocedural states
CPT/HCPCS: 36415; 80048; 80053; 82533; 82962; 83036; 83735; 84100; 85025; 86705; 86709; 86803; 87340; 93005; 99285; C1893; J2185

== ENCOUNTER 2022-03-21 18:22 | Inpatient (IN) | payer MEDICARE, MEDICAID ==
[~2022-03-21] VITALS: Ht 121.9 cm; Wt 45.8 kg
[2022-03-21 21:22] LABS: BASOPHILS % 0.6 % (0.0-2.0); EOSINOPHILS % 2.9 % (0.0-5.0); HEMOGLOBIN. 10.2 g/dL (12.0-16.0); LYMPHOCYTES % 14.8 % (20.0-50.0); MEAN CORPUSCULAR HEMOGLOBIN 30.4 pg (28.0-32.0); MEAN CORPUSCULAR VOLUME 95.3 fL (81.0-99.0); MONOCYTES % 7.1 % (2.0-8.0); NEUTROPHILS % 74.6 % (40.0-76.0); PLATELET 123 x1000/uL (130-400); RED BLOOD CELL COUNT 3.36 mill/uL (4.2-5.4); RED CELL DISTRIBUTION WIDTH 15.3 % (11.6-14.6)
[2022-03-21 21:32] LABS: CHLORIDE 101 mEq/L (98-107)
[2022-03-22] MEDS ORDERED: DEXTROSE 50% WATER 50ML SYRINGE IV PRN (05:15)
[2022-03-22] MEDS ORDERED: METHOCARBAMOL 500MG TABLET PO PRN (05:30)
[2022-03-22] MEDS ORDERED: ALBUTEROL (0.083%) 2.5MG/3ML NEB INH PRN (05:30)
[2022-03-22] MEDS: BLOOD SUGAR DIAGNOSTIC STRIP TEST SCH ×4 (06:30→21:22)
[2022-03-22] MEDS: INSULIN LISPRO 100 UNITS/ML SUBCUT SCH ×4 (07:00→21:00)
[2022-03-22 09:00] VITALS: BP 177/57
[2022-03-22] MEDS: CINACALCET HCL 30MG TABLET PO SCH (09:53)
[2022-03-22] MEDS: AMIODARONE HCL 200 MG TABLET PO SCH (09:53)
[2022-03-22] MEDS: FOLIC ACID/VITAMIN B COMP W-C TABLET PO SCH (09:54)
[2022-03-22] MEDS: APIXABAN 2.5 MG TABLET PO SCH ×2 (09:54→17:05)
[2022-03-22] MEDS: PANTOPRAZOLE 40MG DR TABLET PO SCH (09:55)
[2022-03-22 12:00] VITALS: BP 171/62
[2022-03-22] MEDS ORDERED: ACETAMINOPHEN 325MG TABLET PO PRN (12:15)
[2022-03-22] MEDS ORDERED: KETOROLAC 10MG TABLET PO PRN (12:15)
[2022-03-22] MEDS ORDERED: HYDROCODONE/ACETAMINOPHEN 5/325MG TABLET PO PRN (12:15)
[2022-03-22] MEDS ORDERED: NALOXONE HCL 0.4MG/ML VIAL IV PRN (12:45)
[2022-03-22] MEDS: HYDRALAZINE 20MG/ML VIAL IV PRN (13:38)
[2022-03-22] MEDS: DOCUSATE SODIUM 100MG CAPSULE PO SCH (13:39)
[2022-03-22] MEDS: AMLODIPINE 5MG TABLET PO SCH ×2 (13:39→21:27)
[2022-03-22] MEDS: SEVELAMER CARBONATE 800 MG TABLET PO SCH ×2 (13:41→17:05)
[2022-03-22 16:00] VITALS: BP 130/48
[2022-03-22 17:28] LABS: BASOPHILS % 0.6 % (0.0-2.0); EOSINOPHILS % 2.1 % (0.0-5.0); HEMATOCRIT. 33.6 % (36.0-48.0); HEMOGLOBIN. 10.8 g/dL (12.0-16.0); LYMPHOCYTES % 10.3 % (20.0-50.0); MEAN CORPUSCULAR HEMOGLOBIN 30.3 pg (28.0-32.0); MEAN CORPUSCULAR VOLUME 93.9 fL (81.0-99.0); MEAN PLATELET VOLUME 8.8 fl (7.4-10.4); MONOCYTES % 7.3 % (2.0-8.0); NEUTROPHILS % 79.7 % (40.0-76.0); PLATELET 133 x1000/uL (130-400); RED BLOOD CELL COUNT 3.58 mill/uL (4.2-5.4); RED CELL DISTRIBUTION WIDTH 15.5 % (11.6-14.6)
[2022-03-22] MEDS ORDERED: SORBITOL 70% SOLN 30ML PO PRN (18:00)
[2022-03-22 18:14] LABS: CHLORIDE 99 mEq/L (98-107)
[2022-03-22 18:29] LABS: PHOSPHORUS 1.9 mg/dL (2.5-4.9)
[2022-03-22 20:00] VITALS: BP 156/67
[2022-03-22 20:06] LABS: HEPATITIS B SURFACE ANTIGEN NEGATIVE
[2022-03-22] MEDS: ATORVASTATIN CALCIUM 40MG TABLET PO SCH (21:27)
[2022-03-23] VITALS: BP 96/67
[2022-03-23 04:00] VITALS: BP 144/55
[2022-03-23 07:24] LABS: BASOPHILS % 0.7 % (0.0-2.0); EOSINOPHILS % 1.5 % (0.0-5.0); HEMATOCRIT. 32.4 % (36.0-48.0); HEMOGLOBIN. 10.7 g/dL (12.0-16.0); LYMPHOCYTES % 15.9 % (20.0-50.0); MEAN CORPUSCULAR HEMOGLOBIN 30.9 pg (28.0-32.0); MEAN CORPUSCULAR VOLUME 93.5 fL (81.0-99.0); MEAN PLATELET VOLUME 8.9 fl (7.4-10.4); MONOCYTES % 7.2 % (2.0-8.0); NEUTROPHILS % 74.7 % (40.0-76.0); PLATELET 142 x1000/uL (130-400); RED BLOOD CELL COUNT 3.47 mill/uL (4.2-5.4); RED CELL DISTRIBUTION WIDTH 15.3 % (11.6-14.6)
[2022-03-23] MEDS: INSULIN LISPRO 100 UNITS/ML SUBCUT SCH ×4 (07:50→21:00)
[2022-03-23 08:00] VITALS: BP 170/56
[2022-03-23] MEDS: BLOOD SUGAR DIAGNOSTIC STRIP TEST SCH ×4 (08:04→21:41)
[2022-03-23 08:25] LABS: CHLORIDE 97 mEq/L (98-107)
[2022-03-23 08:32] LABS: VITAMIN B12 SERUM > 2000.0 pg/mL (211-911)
[2022-03-23 08:43] LABS: HDL CHOLESTEROL 55 mg/dL (40-59); LDL CHOLESTEROL 50 mg/dL (5-100)
[2022-03-23] MEDS: CINACALCET HCL 30MG TABLET PO SCH (09:03)
[2022-03-23] MEDS: APIXABAN 2.5 MG TABLET PO SCH ×2 (09:03→17:40)
[2022-03-23] MEDS: PANTOPRAZOLE 40MG DR TABLET PO SCH (09:03)
[2022-03-23] MEDS: FOLIC ACID/VITAMIN B COMP W-C TABLET PO SCH (09:03)
[2022-03-23] MEDS: AMLODIPINE 5MG TABLET PO SCH ×2 (09:03→21:41)
[2022-03-23] MEDS: AMIODARONE HCL 200 MG TABLET PO SCH (09:03)
[2022-03-23] MEDS: DOCUSATE SODIUM 100MG CAPSULE PO SCH (09:03)
[2022-03-23] MEDS: SEVELAMER CARBONATE 800 MG TABLET PO SCH ×3 (09:12→17:40)
[2022-03-23] MEDS: HYDRALAZINE 20MG/ML VIAL IV PRN (14:35)
[2022-03-23 16:00] VITALS: BP 145/54
[2022-03-23 20:00] VITALS: BP 137/51
[2022-03-23] MEDS ORDERED: MEMANTINE HCL 5MG TABLET PO SCH (20:30)
[2022-03-23] MEDS: ATORVASTATIN CALCIUM 40MG TABLET PO SCH (21:41)
== END 2022-03-23 21:30 | disposition home or self-care (01) | DRG 391 ==
LOC: ER 18:22 → MICUSO 03-22 01:07 → EDBEDREQ 03-22 01:09 → EDBEDREQTM 03-22 01:09 → 6WST 03-22 09:03
PROVIDERS: ADMIT Hospitalist; ATTEND Hospitalist
DX: K59.00 Constipation, unspecified (principal); N18.6 End stage renal disease; I13.2 Hypertensive heart and chronic kidney disease with heart failure and with stage 5 chronic kidney disease, or end stage renal disease; E87.1 Hypo-osmolality and hyponatremia; N25.81 Secondary hyperparathyroidism of renal origin; I50.22 Chronic systolic (congestive) heart failure; E11.22 Type 2 diabetes mellitus with diabetic chronic kidney disease; F03.90 Unspecified dementia, unspecified severity, without behavioral disturbance, psychotic disturbance, mood disturbance, and anxiety; R77.8 Other specified abnormalities of plasma proteins; D63.1 Anemia in chronic kidney disease; E11.51 Type 2 diabetes mellitus with diabetic peripheral angiopathy without gangrene; E78.00 Pure hypercholesterolemia, unspecified; I25.5 Ischemic cardiomyopathy; E78.5 Hyperlipidemia, unspecified; I48.91 Unspecified atrial fibrillation; I25.2 Old myocardial infarction; Z89.511 Acquired absence of right leg below knee; Z95.5 Presence of coronary angioplasty implant and graft; Z89.622 Acquired absence of left hip joint; Z99.2 Dependence on renal dialysis; Z20.822 Contact with and (suspected) exposure to COVID-19
CPT/HCPCS: 36415; 71045; 74176; 76705; 80053; 80061; 82607; 82962; 83036; 83605; 83735; 83880; 84100; 84443; 84484; 85025; 86705; 86709; 86803; 87340; 93005; 93306; 95816; 97162; 99285; J0360